=== PATIENT | male | born 1950 | race Caucasian/White ===

== ENCOUNTER 2020-03-30 06:14 | Day surgery (SDC) | payer MEDICARE, SELFPAY ==
[2020-03-30] VITALS (7 sets, daily range): BP systolic 127–142; BP diastolic 75–94; PULSE 57–90; RESP 15–22; TEMP 35.7–36.6; O2SAT 95–98; BMI 31.0
--- NOTE | 2020-03-30 07:53 | MHC.SHP ---
Pre-Procedural Eval Section A The patient is an INPATIENT: No Changes since office visit: Yes Patient answered all questions The History & Physical has been completed within 30 days and I have reviewed it.: Yes Section B Chief Complaint: SEVERE DEPRESSION Allergies: Allergies Allergy/AdvReac Type Severity Reaction Status Date / Time fluvoxamine [From LUVOX] AdvReac Unknown HEPATITIS Unverified 03/03/20 19:49 NSAIDS (Non-Steroidal AdvReac Unknown GI ISSUES Unverified 03/03/20 19:49 Anti-Inflamma [NSAIDS (NON-STEROIDAL ANTI-INFLAMMA] Plan Patient has been examined and remains a candidate for the planned procedure
--- NOTE | 2020-03-30 07:58 | HO.ANESPROP2 ---
[facility] Past Medical History Medical History Anxiety Arthritis Cataract Depression Elevated cholesterol GERD (gastroesophageal reflux disease) HTN (hypertension) Hx of hepatitis Hypothyroid OCD (obsessive compulsive disorder) Surgical History Surgical History Hx of tonsillectomy Social History Social History Are you a primary intensive care medicine specialist to a significant other at home: No Do you presently have visiting nurse or other home services: No Smoking Status: Never smoker Use of substances other than those prescribed or required for medical reasons: No Have you been hit, kicked, punched, or otherwise hurt by someone within the past year? If so, by whom?: No Advance Directives: Yes Advance Directives on File: Yes Advance Directives Date on File: 03/30/20 Recently lost weight without trying: No Meds Allergies Allergy/AdvReac Type Severity Reaction Status Date / Time fluvoxamine [From LUVOX] AdvReac Unknown HEPATITIS Unverified 03/03/20 19:49 NSAIDS (Non-Steroidal AdvReac Unknown GI ISSUES Unverified 03/03/20 19:49 Anti-Inflamma [NSAIDS (NON-STEROIDAL ANTI-INFLAMMA] Home Medications Medication Instructions Recorded Confirmed Type Centrum Silver Men 1 tab PO DAILY 03/29/20 03/29/20 History buspirone 1 tab PO BID 03/29/20 03/29/20 History cholecalciferol (vitamin D3) 1 tab PO DAILY 03/29/20 03/29/20 History cholecalciferol (vitamin D3) 1 tab PO DAILY 03/29/20 03/29/20 History clomipramine 1 cap PO BEDTIME 03/29/20 03/29/20 History docusate sodium 1 cap PO PRN 03/29/20 History ezetimibe 1 tab PO DAILY 03/29/20 03/29/20 History famotidine 1 tab PO BID 03/29/20 03/29/20 History levothyroxine 1 tab PO DAILY 03/29/20 03/29/20 History lorazepam 1.5 tab PO TID 03/29/20 03/30/20 History magnesium oxide 1 tab PO DAILY 03/29/20 03/29/20 History olanzapine 0.5 tab PO BID 03/29/20 03/30/20 History propranolol 1 tab PO TID 03/29/20 03/29/20 History sertraline 1 tab PO QAM 03/29/20 03/29/20 History simvastatin 1 tab PO BEDTIME 03/29/20 03/29/20 History Exam Exam Date and Time: March 30, 2020 0108 Height,Weight and Vital Signs: Height 5 ft 9 in Weight 95.254 kg Last Vital Signs Temp 96.3 F L 03/30/20 06:56 Pulse 71 03/30/20 06:56 Resp 17 03/30/20 06:56 BP 140/94 H 03/30/20 06:56 Pulse Ox 97 03/30/20 06:56 Airway Mallampati Class: II TM Dist: >3cm Neck ROM: Full Assessment and Plan Assessment Anesthesia Assessment: Anesthesia Plan Discussed and Chart Reviewed Final Anesthetic Review NPO: Yes ASA Class: II Final Preanesthetic Review: No Changes in Pt Med Stat, Meds/Allgs Chart Reviewed, Consent Obtained/Reviewed and Anes Risks/Benef Reviewed Patient Risk: Low Procedure Risk: Low Assessment/Block/Sedation in SS: Assess/Block/Sedation-SS Anesthetic Plan Anesthetic Plan: GA Disposition: Standard PACU
--- NOTE | 2020-03-30 08:09 | HO.ECTPROC ---
ECT Procedure Note Diagnosis/Treatment Diagnosis: Major Depressive Disorder Previous ECT Date: 03/02/20 Current Treatment Number: 5 Treatment: Maintenance (10/27) Interval Clinical Notes: STABLE DOING WELL ECT Settings Device: THYMATRON DGx Electrode Placement: Right Unilateral Program/Pulse Width: 0.25 Energy Percent: 100 Seizure Duration By EEG (in seconds): 49 Medications Administration General Anesthetic: Etomidate (12 MG) Muscle Relaxant: Succinylcholine (100 MG) Ancillary Medications Anti-emetics: Zofran - Pre ECT (4 MG) Miscillaneous Medications: Propofol (30 MG) Airway Management Airway Management: Bag Mask Ventilation Treatment Recommendations No Changes Recommended: No change Notes: STABLE DOING WELL WITH MAINT ECT CONTINUE TX Pt Tolerated Procedure w/o Issue: Yes
--- NOTE | 2020-03-30 08:18 | PC.NURSE ---
Pt received 450 ml LR periop.
== END 2020-03-30 09:30 | disposition home or self-care (01) ==
PROVIDERS: PCP Family Medicine; Visit Provider Psychiatry & Neurology Psychiatry
PROC: (CPT 90870; principal; 2020-03-30 07:00)
DX: F33.2 Major depressive disorder, recurrent severe without psychotic features (principal); F42.9 Obsessive-compulsive disorder, unspecified; G47.30 Sleep apnea, unspecified; E78.5 Hyperlipidemia, unspecified; Z79.899 Other long term (current) drug therapy; Z88.8 Allergy status to other drugs, medicaments and biological substances
CPT/HCPCS: 90870

== ENCOUNTER 2020-04-27 06:10 | Day surgery (SDC) | payer MEDICARE, SELFPAY ==
[2020-04-27 06:30] VITALS: BP 142/90; PULSE 81; RESP 16; TEMP 36.5; O2SAT 97; BMI 29.5
--- NOTE | 2020-04-27 07:23 | HO.ANESPROP2 ---
HPI - Anesthesia Eval Consult details Narrative: 69 m here for ect PMFSH Past Medical History Medical History Anxiety Arthritis Cataract Depression Elevated cholesterol GERD (gastroesophageal reflux disease) HTN (hypertension) Hx of hepatitis Hypothyroid OCD (obsessive compulsive disorder) Surgical History Surgical History Hx of tonsillectomy Social History Social History Smoking Status: Never smoker Advance Directives: No Advance Directives Date on File: 03/30/20 Meds Allergies Allergy/AdvReac Type Severity Reaction Status Date / Time fluvoxamine [From LUVOX] AdvReac Unknown HEPATITIS Unverified 04/27/20 06:54 NSAIDS (Non-Steroidal AdvReac Unknown GI ISSUES Unverified 04/27/20 06:54 Anti-Inflamma [NSAIDS (NON-STEROIDAL ANTI-INFLAMMA] Home Medications Medication Instructions Recorded Confirmed Type Centrum Silver Men 1 tab PO DAILY 03/29/20 03/29/20 History buspirone 1 tab PO BID 03/29/20 03/29/20 History cholecalciferol (vitamin D3) 1 tab PO DAILY 03/29/20 03/29/20 History cholecalciferol (vitamin D3) 1 tab PO DAILY 03/29/20 03/29/20 History clomipramine 1 cap PO BEDTIME 03/29/20 03/29/20 History docusate sodium 1 cap PO PRN 03/29/20 History ezetimibe 1 tab PO DAILY 03/29/20 03/29/20 History famotidine 1 tab PO BID 03/29/20 03/29/20 History levothyroxine 1 tab PO DAILY 03/29/20 03/29/20 History lorazepam 1.5 tab PO TID 03/29/20 03/30/20 History magnesium oxide 1 tab PO DAILY 03/29/20 03/29/20 History olanzapine 0.5 tab PO BID 03/29/20 03/30/20 History propranolol 1 tab PO TID 03/29/20 03/29/20 History sertraline 1 tab PO QAM 03/29/20 03/29/20 History simvastatin 1 tab PO BEDTIME 03/29/20 03/29/20 History Exam Exam Date and Time: April 27, 2020 0723 Height,Weight and Vital Signs: Height 5 ft 9 in Weight 90.718 kg Last Vital Signs Temp 97.7 F 04/27/20 06:30 Pulse 81 04/27/20 06:30 Resp 16 04/27/20 06:30 BP 142/90 H 04/27/20 06:30 Pulse Ox 97 04/27/20 06:30 Airway Mallampati Class: II TM Dist: >3cm Neck ROM: Full Adult Head Mouth w/Numbe Teeth: 1. Loose Loose/Missing/Broken Teeth: Yes Assessment and Plan Assessment Anesthesia Assessment: Anesthesia Plan Discussed and Chart Reviewed Final Anesthetic Review NPO: Yes ASA Class: III Final Preanesthetic Review: No Changes in Pt Med Stat, Meds/Allgs Chart Reviewed, Consent Obtained/Reviewed and Anes Risks/Benef Reviewed Patient Risk: Low Procedure Risk: Low Anesthetic Plan Anesthetic Plan: GA Disposition: Standard PACU
--- NOTE | 2020-04-27 07:49 | MHC.SHP ---
Pre-Procedural Eval Section B Chief Complaint: Severe Depression Details of Present Illness: recurrent depression ocd stable with ect Relevant Family History (Specify if Yes): No Relevant Social History: None Present Medications: see Short Stay Collaborative assessment Medical History: No relevant PMH History of Previous Operations: Relevant previous surgery/procedure and date(s) (ect) Allergies: Allergies Allergy/AdvReac Type Severity Reaction Status Date / Time fluvoxamine [From LUVOX] AdvReac Unknown HEPATITIS Unverified 04/27/20 06:54 NSAIDS (Non-Steroidal AdvReac Unknown GI ISSUES Unverified 04/27/20 06:54 Anti-Inflamma [NSAIDS (NON-STEROIDAL ANTI-INFLAMMA] Review of Systems Sugical H&P ROS: Negative: Cardiovascular, Respiratory and Neurological Exam Surgical H&P Exam: Normal: Heart, Normal: Lungs and Normal: Neurological Plan Diagnosis/Plan: Unchanged Patient has been examined and remains a candidate for the planned procedure
[2020-04-27 08:09] VITALS: BP 137/89; PULSE 23; RESP 16; TEMP 36.8; O2SAT 97
[2020-04-27 08:14] VITALS: BP 154/78; PULSE 88; RESP 20; O2SAT 96
[2020-04-27 08:19] VITALS: BP 149/89; PULSE 82; RESP 20; O2SAT 98
[2020-04-27 08:24] VITALS: BP 145/83; PULSE 87; RESP 20; O2SAT 95
--- NOTE | 2020-04-27 08:37 | HO.ECTPROC ---
ECT Procedure Note Diagnosis/Treatment Diagnosis: Major Depressive Disorder Previous ECT Date: 03/02/20 Current Treatment Number: 6 Treatment: Maintenance (10/27) Interval Clinical Notes: STABLE DOING WELL tx11/28 ECT Settings Device: THYMATRON DGx Electrode Placement: Right Unilateral Program/Pulse Width: 0.25 Energy Percent: 100 Seizure Duration By EEG (in seconds): 47 Medications Administration General Anesthetic: Etomidate (12 MG) Muscle Relaxant: Succinylcholine (100 MG) Ancillary Medications Analgesics: Torodol - Pre ECT Anti-emetics: Zofran - Pre ECT (8) Miscillaneous Medications: Propofol (30) Airway Management Airway Management: Bag Mask Ventilation Treatment Recommendations No Changes Recommended: No change Notes: could use lidocaine pretx f/u tx 5 weeks Pt Tolerated Procedure w/o Issue: Yes
[2020-04-27 08:39] VITALS: BP 137/82; PULSE 80; RESP 20; O2SAT 95
--- NOTE | 2020-04-27 09:12 | HO.POSTANES ---
Post Anesthesia Evaluation Post Anesthesia Evaluation Vital Signs: Vital Signs Temp Pulse Resp BP Pulse Ox 04/27/20 08:39 98.3 F 80 20 137/82 95 04/27/20 08:24 87 20 145/83 H 95 04/27/20 08:19 82 20 149/89 H 98 04/27/20 08:14 88 20 154/78 H 96 04/27/20 08:09 98.3 F 23 L 16 137/89 97 04/27/20 06:30 97.7 F 81 16 142/90 H 97 Anesthesia: General (mask) Mental Status: Awake Pain Control: Satisfactory Nausea/Vomiting: None Hydration: Adequate Anesthesia-Related Issues: No Anes. Related Issues
== END 2020-04-27 09:31 | disposition home or self-care (01) ==
PROVIDERS: PCP Family Medicine; Visit Provider Psychiatry & Neurology Psychiatry
PROC: (CPT 90870; principal; 2020-04-27 07:00)
DX: F33.2 Major depressive disorder, recurrent severe without psychotic features (principal); F42.9 Obsessive-compulsive disorder, unspecified; Z88.8 Allergy status to other drugs, medicaments and biological substances; I10 Essential (primary) hypertension; E78.00 Pure hypercholesterolemia, unspecified; Z79.899 Other long term (current) drug therapy
CPT/HCPCS: 90870

== ENCOUNTER 2020-06-01 06:09 | Day surgery (SDC) | payer MEDICARE, SELFPAY ==
[2020-06-01] VITALS (7 sets, daily range): BP systolic 136–149; BP diastolic 77–89; PULSE 71–83; RESP 16–20; TEMP 36.4–36.9; O2SAT 95–98; BMI 31.0
[2020-06-01] MEDS: Lactated Ringers 1,000 ML 100 ML IVCONT (06:35)
--- NOTE | 2020-06-01 07:55 | MHC.SHP ---
Pre-Procedural Eval Section B Chief Complaint: Severe Depression Details of Present Illness: recurrent depression ocd Relevant Family History (Specify if Yes): No Relevant Social History: None Present Medications: see Short Stay Collaborative assessment (anafranil inc 100 mg) Medical History: No relevant PMH History of Previous Operations: No relevant previous surgery (ect) Allergies: Allergies Allergy/AdvReac Type Severity Reaction Status Date / Time fluvoxamine [From LUVOX] AdvReac Unknown HEPATITIS Unverified 04/27/20 06:54 NSAIDS (Non-Steroidal AdvReac Unknown GI ISSUES Unverified 04/27/20 06:54 Anti-Inflamma [NSAIDS (NON-STEROIDAL ANTI-INFLAMMA] Review of Systems Sugical H&P ROS: Negative: Cardiovascular, Respiratory and Neurological and Yes, Specify: Psychiatric (inc ocd sx ) Exam Surgical H&P Exam: Normal: Heart, Normal: Lungs and Normal: Neurological Plan Diagnosis/Plan: Unchanged Patient has been examined and remains a candidate for the planned procedure
--- NOTE | 2020-06-01 07:58 | HO.ANESPROP2 ---
[facility] Past Medical History Medical History Anxiety Arthritis Cataract Depression Elevated cholesterol GERD (gastroesophageal reflux disease) HTN (hypertension) Hx of hepatitis Hypothyroid OCD (obsessive compulsive disorder) Surgical History Surgical History Hx of tonsillectomy Social History Social History Smoking Status: Never smoker Advance Directives: Yes Advance Directives Information Provided: Yes Advance Directives on File: No Advance Directives Date on File: 03/30/20 Meds Allergies Allergy/AdvReac Type Severity Reaction Status Date / Time fluvoxamine [From LUVOX] AdvReac Unknown HEPATITIS Unverified 04/27/20 06:54 NSAIDS (Non-Steroidal AdvReac Unknown GI ISSUES Unverified 04/27/20 06:54 Anti-Inflamma [NSAIDS (NON-STEROIDAL ANTI-INFLAMMA] Home Medications Medication Instructions Recorded Confirmed Type Centrum Silver Men 1 tab PO DAILY 03/29/20 03/29/20 History buspirone 1 tab PO BID 03/29/20 03/29/20 History cholecalciferol (vitamin D3) 1 tab PO DAILY 03/29/20 03/29/20 History cholecalciferol (vitamin D3) 1 tab PO DAILY 03/29/20 03/29/20 History docusate sodium 1 cap PO PRN 03/29/20 History ezetimibe 1 tab PO DAILY 03/29/20 03/29/20 History famotidine 1 tab PO BID 03/29/20 03/29/20 History levothyroxine 1 tab PO DAILY 03/29/20 03/29/20 History lorazepam 1.5 tab PO TID 03/29/20 03/30/20 History magnesium oxide 1 tab PO DAILY 03/29/20 03/29/20 History olanzapine 0.5 tab PO BID 03/29/20 03/30/20 History propranolol 1 tab PO TID 03/29/20 03/29/20 History simvastatin 1 tab PO BEDTIME 03/29/20 03/29/20 History clomipramine 06/01/20 06/01/20 History sertraline 50 mg PO DAILY 06/01/20 06/01/20 History Exam Exam Date and Time: June 01, 2020 0758 Height,Weight and Vital Signs: Height 5 ft 9 in Weight 95.254 kg Last Vital Signs Temp 97.6 F 06/01/20 06:10 Pulse 78 06/01/20 06:10 Resp 16 06/01/20 06:10 BP 149/89 H 06/01/20 06:10 Pulse Ox 97 06/01/20 06:10 Airway Mallampati Class: II TM Dist: >3cm Neck ROM: Full Loose/Missing/Broken Teeth: Yes and Upper
--- NOTE | 2020-06-01 09:40 | HO.POSTANES ---
Post Anesthesia Evaluation Post Anesthesia Evaluation Vital Signs: Vital Signs Temp Pulse Resp BP Pulse Ox 06/01/20 09:06 98.4 F 76 20 136/85 96 06/01/20 08:51 76 20 143/83 H 97 06/01/20 08:36 81 20 144/77 H 97 06/01/20 08:31 83 20 140/79 H 98 06/01/20 08:26 83 18 139/84 97 06/01/20 08:21 98.1 F 71 19 138/77 95 06/01/20 06:10 97.6 F 78 16 149/89 H 97 Anesthesia: General (mask) Mental Status: Awake Pain Control: Satisfactory Nausea/Vomiting: None Hydration: Adequate Anesthesia-Related Issues: No Anes. Related Issues
--- NOTE | 2020-06-01 22:25 | HO.ECTPROC ---
ECT Procedure Note Diagnosis/Treatment Diagnosis: Major Depressive Disorder Current Treatment Number: 7 Treatment: Maintenance Interval Clinical Notes: patient continues to be stable some inc anxiety OCD ECT Settings Device: THYMATRON DGx Electrode Placement: Right Unilateral Program/Pulse Width: 0.25 Energy Percent: 100 Seizure Duration By EEG (in seconds): 55 Medications Administration General Anesthetic: Etomidate (12 MG) Muscle Relaxant: Succinylcholine (100 MG) Ancillary Medications Analgesics: Torodol - Pre ECT Anti-emetics: Zofran - Pre ECT (8) Miscillaneous Medications: Propofol (30) Airway Management Airway Management: Bag Mask Ventilation
== END 2020-06-01 09:55 | disposition home or self-care (01) ==
PROVIDERS: PCP Family Medicine; Visit Provider Psychiatry & Neurology Psychiatry
PROC: (CPT 90870; principal; 2020-06-01 07:00)
DX: F33.2 Major depressive disorder, recurrent severe without psychotic features (principal); F42.9 Obsessive-compulsive disorder, unspecified; F41.8 Other specified anxiety disorders; I10 Essential (primary) hypertension; Z79.899 Other long term (current) drug therapy; Z88.8 Allergy status to other drugs, medicaments and biological substances
CPT/HCPCS: 90870

== ENCOUNTER 2020-07-20 06:11 | Day surgery (SDC) | payer MEDICARE, SELFPAY ==
[2020-07-20] VITALS (7 sets, daily range): BP systolic 126–154; BP diastolic 76–90; PULSE 63–90; RESP 16–19; TEMP 32.2–36.8; O2SAT 92–98; BMI 31.7
--- NOTE | 2020-07-20 07:06 | P.CONAN_ITS ---
COUNT INCLUDES THE [facility] Past Medical History Medical History Anxiety Arthritis Cataract Depression Elevated cholesterol GERD (gastroesophageal reflux disease) HTN (hypertension) Hx of hepatitis Hypothyroid OCD (obsessive compulsive disorder) Surgical History Surgical History Hx of tonsillectomy Social History Social History Smoking Status: Never smoker Use of substances other than those prescribed or required for medical reasons: No Have you been hit, kicked, punched, or otherwise hurt by someone within the past year? If so, by whom?: No Advance Directives: No Advance Directives Information Provided: Yes Advance Directives Date on File: 03/30/20 Recently lost weight without trying: No Meds Allergies Allergy/AdvReac Type Severity Reaction Status Date / Time fluvoxamine [From LUVOX] AdvReac Unknown HEPATITIS Unverified 04/27/20 06:54 NSAIDS (Non-Steroidal AdvReac Unknown GI ISSUES Unverified 04/27/20 06:54 Anti-Inflamma [NSAIDS (NON-STEROIDAL ANTI-INFLAMMA] Home Medications Medication Instructions Recorded Confirmed Type Centrum Silver Men 1 tab PO DAILY 03/29/20 03/29/20 History buspirone 1 tab PO BID 03/29/20 03/29/20 History cholecalciferol (vitamin D3) 1 tab PO DAILY 03/29/20 03/29/20 History cholecalciferol (vitamin D3) 1 tab PO DAILY 03/29/20 03/29/20 History docusate sodium 1 cap PO PRN 03/29/20 History ezetimibe 1 tab PO DAILY 03/29/20 03/29/20 History famotidine 1 tab PO BID 03/29/20 03/29/20 History levothyroxine 1 tab PO DAILY 03/29/20 03/29/20 History lorazepam 1.5 tab PO TID 03/29/20 03/30/20 History magnesium oxide 1 tab PO DAILY 03/29/20 03/29/20 History olanzapine 0.5 tab PO BID 03/29/20 03/30/20 History propranolol 1 tab PO TID 03/29/20 03/29/20 History simvastatin 1 tab PO BEDTIME 03/29/20 03/29/20 History clomipramine 06/01/20 06/01/20 History sertraline 50 mg PO DAILY 06/01/20 06/01/20 History Exam Exam Date and Time: July 20, 2020705 Height,Weight and Vital Signs: Height 5 ft 9 in Weight 97.522 kg Last Vital Signs Temp 98.0 F 07/20/20 06:35 Pulse 88 07/20/20 06:35 Resp 16 07/20/20 06:35 BP 149/89 H 07/20/20 06:35 Pulse Ox 96 07/20/20 06:35 Airway Mallampati Class: II (Loose botton tooth, implant top right lateral) TM Dist: >3cm Neck ROM: Full Heart: RRR Lungs: CTA BL Assessment and Plan Assessment Anesthesia Assessment: Anesthesia Plan Discussed and Chart Reviewed Final Anesthetic Review NPO: Yes (Sip water with med) ASA Class: III Final Preanesthetic Review: Meds/Allgs Chart Reviewed and Consent Obtained/Reviewed Patient Risk: Intermediate Procedure Risk: Intermediate Anesthetic Plan Anesthetic Plan: GA Disposition: Standard PACU
--- NOTE | 2020-07-20 07:34 | MHC.SHP ---
Pre-Procedural Eval Section B Chief Complaint: Severe Depression Details of Present Illness: RECURRENT DEPRESSION OCD DOES WELL WITH MAINTENANCE TX Relevant Social History: None Present Medications: see Short Stay Collaborative assessment (HAS INC ANAFRANIL 150 MG ) Medical History: Significant History (ECT FOR DEPRESSION ) History of Previous Operations: No relevant previous surgery (ECT) Allergies: Allergies Allergy/AdvReac Type Severity Reaction Status Date / Time fluvoxamine [From LUVOX] AdvReac Unknown HEPATITIS Unverified 04/27/20 06:54 NSAIDS (Non-Steroidal AdvReac Unknown GI ISSUES Unverified 04/27/20 06:54 Anti-Inflamma [NSAIDS (NON-STEROIDAL ANTI-INFLAMMA] Review of Systems Sugical H&P ROS: Negative: Cardiovascular, Respiratory and Neurological and Yes, Specify: Psychiatric (OBSESSIONAL THOUGHTS ) Exam Surgical H&P Exam: Normal: HEENT, Normal: Heart (RR NO MURMUR ) and Normal: Lungs (CLEAR) Plan Diagnosis/Plan: Unchanged I have reviewed the history and physical and performed a pertinent physical examination on my patient. No changes have occurred unless specified.
--- NOTE | 2020-07-20 07:50 | HO.ECTPROC ---
ECT Procedure Note Diagnosis/Treatment Diagnosis: Major Depressive Disorder Previous ECT Date: 06/01/20 Current Treatment Number: 8 Treatment: Maintenance Interval Clinical Notes: pt doing well will try and d/c ect ECT Settings Device: THYMATRON DGx Electrode Placement: Right Unilateral Program/Pulse Width: 0.25 Energy Percent: 100 Seizure Duration By EEG (in seconds): 46 Medications Administration General Anesthetic: Etomidate (12 MG) Muscle Relaxant: Succinylcholine (100 MG) Ancillary Medications Anti-emetics: Zofran - Pre ECT (8) Miscillaneous Medications: Propofol (30 mg) and Flumazenil Airway Management Airway Management: Bag Mask Ventilation Treatment Recommendations No Changes Recommended: No change Notes: will end maint for now consider prn Pt Tolerated Procedure w/o Issue: Yes
--- NOTE | 2020-07-20 08:22 | HO.POSTANES ---
Post Anesthesia Evaluation Post Anesthesia Evaluation Vital Signs: Vital Signs Temp Pulse Resp BP Pulse Ox 07/20/20 08:08 90 16 140/82 H 92 07/20/20 08:03 90 19 148/90 H 94 07/20/20 07:58 88 17 138/76 94 07/20/20 07:53 98.3 F 63 16 154/80 H 98 07/20/20 06:35 98.0 F 88 16 149/89 H 96 Anesthesia: General Mental Status: Awake Pain Control: Satisfactory Nausea/Vomiting: None Hydration: Adequate Anesthesia-Related Issues: No Anes. Related Issues
== END 2020-07-20 08:46 | disposition home or self-care (01) ==
PROVIDERS: PCP Family Medicine; Visit Provider Psychiatry & Neurology Psychiatry
PROC: (CPT 90870; principal; 2020-07-20 07:00)
DX: F33.2 Major depressive disorder, recurrent severe without psychotic features (principal); F42.9 Obsessive-compulsive disorder, unspecified
CPT/HCPCS: 90870; J0330; J2405

== ENCOUNTER 2021-07-07 08:30 | Outpatient (RCR) | payer MEDICARE, SELFPAY ==
--- NOTE | 2021-06-22 12:01 | PC.NURSE ---
Staff stated that Blake was having technical issues in the second group thus was not able to attend. I spoke to Blake for 45 minutes trying to help him with video and microphone issues however Blake was continuing to have difficulty with the technology. I asked him how he was able to get into the first group and he stated his had helped him however his is not home at this time to help him. Plan is for patient to call staff when his gets home within the next hour or 2 so she can help him with the technology and start the program tomorrow.
[2021-06-23 11:51] VITALS: BMI 32.5
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
--- NOTE | 2021-06-23 14:25 | PC.ADMIT ---
Patient is a 70 year old male who self referred to the PHP program d/t increased depression with passive SI, no plan or intent, and increased anxiety. He reports crying episodes and expressed feelings of hopelessness and helplessness. Patient reports he has a history of anxiety and depression however it has worsened after he retired from work. Patient also noted another trigger for him was moving from [place] to [place]. Patient has a history of inpatient admissions and a history of attending PHP. Denied history of suicide attempts. Patient is alert and oriented x4. Calm and cooperative. Presents with depressed mood and affect, tearful towards the end of the assessment. Patient reports passive Si having thoughts to kill himself when her has, crying fits . Patient denied plan or intent stating her could never kill himself as he's too afraid. Reconciled patient medications with patient and patient's pharmacy. Patient reports he is taking his medications as prescribed.
--- NOTE | 2021-06-28 12:01 | P.PNPSP_ITS ---
Subjective Subjective Date of Service: 06/28/21 Reason For Visit: Depression, Anxiety Guardianship: No Medical Problems Affecting Mental Status: No Interim History: I'm good, haven't really noticed a change with the gabapentin . Reports good sleep and appetite. Says feels slightly drowsy, not bothersome. No thoughts of self-harm, harm to others. Continues with dysphoric mood. Reports his main concern is my anxiety . Medication Compliance: Yes Side effects from medications: No Attending Groups: Yes Review of Systems Acute medical concerns: No Medical Review of Systems: unchanged Review of Systems Review of Systems Yes all other systems are reviewed and are negative Constitutional: Reports no additional constitutional complaints Mental Status Exam Mental Status Exam Narrative: Well-developed, well-nourished male, in NAD. No involuntary movements noted, no tics or tremors. Overall client appears less anxious, appears more at ease. Patient Appearance: Well Grooomed and Appropriate Patient Orientation: Person, Place, Time and Situation Level of Consciousness: Awake and Alert Patient Behavior: Appropriate, Cooperative and Good Eye Contact Mood Description: Appropriate, Depressed and Anxious Affect Description: Appropriate, Depressed and Anxious (Overall client appears less anxious, appears more at ease.) Patient Cognition Impaired: No Ability to Follow Directions: Excellent Speech Pattern: Appropriate, Spontaneous Speech and Coherent Memory Description: Intact Hallucinations: None Delusions: Not Present Thought Process: Intact, Goal Oriented and Linear Thought Content: positive for Intact and positive for Preoccupation Depressive Symptoms: Increased Anxiety, Diff. Making Decisions, Loss of Int. in Activity, Feelings of Worthlessness, Hopelessness, Feelings of Guilt, Unhappiness and Difficulty Concentrating Judgement: Fair Diagnostics Vital Signs (24Hr): BMI result Body Mass Index 32.5 Assessment & Plan Assessment & Plan (1) OCD (obsessive compulsive disorder): Status: Acute Code(s): F42.9 - Obsessive-compulsive disorder, unspecified (2) MDD (major depressive disorder), recurrent episode, severe: Status: Acute Code(s): F33.2 - Major depressive disorder, recurrent severe without psychotic features (3) BRITTNY (generalized anxiety disorder): Status: Acute Code(s): F41.1 - Generalized anxiety disorder Assessment and Plan: Client reports that he continues feeling ?anxious ?. Reports he does not feel the gabapentin 100 mg t.i.d. has been helpful. Denies any type of side effects from medication. Reports good sleep, good appetite. Denies any thought of self-harm at this time, no safety concern. Reports that he finds groups are somewhat helpful. Overall, client appears more at ease, with less anxiety. No obsessional thoughts noted or reported at this time. Discussed medication increase, client was agreeable. Assessment and Plan: 1. Increase gabapentin to 200mg TID. Script sent to pharmacy. 2. continue with current [facility] plan of care. 3. Follow-up as per protocol. Patient educated on: diagnosis, medication risk/benefits and therapeutic strategies Informed Consent: understands Reason for contiued partial hosp. stay Substantial Risk for: inability to function and med/psych decompensation Certification I certify that partial hospital treatment is medically necessary due to the symptoms and problems resulting from the patient's mental illness and the failure to treat the patient at the partial hospital level of care would likely result in the patient requiring inpatient psychiatric care which could not be prevented at a less intensive level of care. I spent minutes with the patient and/or on the patient floor today, greater than?50% of which was spent counseling/coordinating care. Discharge Plan Discharge Attending provider: Roldan Cárdenas Primary Care Provider: Gerri Johansen Medications: New gabapentin 100 mg capsule 200 mg PO TID 7 Days Qty: 42 RF: 0 No Action olanzapine 10 mg tablet 5 tab PO BEDTIME RF: 0 propranolol 10 mg tablet 1 tab PO TID RF: 0 famotidine 20 mg tablet 1 tab PO BID RF: 0 magnesium oxide 400 mg (241.3 mg magnesium) tablet 1 tab PO DAILY RF: 0 simvastatin 20 mg tablet 1 tab PO BEDTIME RF: 0 levothyroxine 200 mcg tablet 1 tab PO DAILY RF: 0 ezetimibe 10 mg tablet 1 tab PO DAILY RF: 0 Centrum Silver Men tablet 1 tab PO DAILY RF: 0 cholecalciferol (vitamin D3) 2,000 units capsule 1 tab PO DAILY RF: 0 fluoxetine [Prozac] 40 mg Capsule 80 mg PO DAILY RF: 0 clonazepam [Klonopin] 1 mg Tablet 1 mg PO TID RF: 0 tamsulosin 0.4 mg Capsule 0.4 mg PO BEDTIME RF: 0 buspirone 10 mg Tablet 20 mg PO TID RF: 0 docusate sodium [Colace] 100 mg Capsule 100 mg PO BID RF: 0 vitamin B complex [B Complex 100] Tablet 1 tab PO BID RF: 0 senna 8.6 mg Capsule 8.8 - 17.2 mg PO DAILY RF: 0 Referrals: Gerri Johansen MD [Primary Care Provider] - 1 Week Telehealth Telehealth Location of provider rendering services: practice address Location of patient: address on file Patient Identification confirmed using: Name, : Yes Telehealth method: video Patient verbally consented to treatment: Yes Patient verbally consented to billing insurance company: Yes Patient informed of any privacy concerns related to visit: Yes Time spent with patient (mins): 20
--- NOTE | 2021-07-03 09:23 | PM.EVENT ---
Event Note Date of Service: 07/03/21 Event Note: Gabapentin 200 mg t.i.d., 14 day supply sent to pharmacy.
--- NOTE | 2021-07-03 13:28 | PC.NURSE ---
After speaking with pt, I sent him an email with information about [employer] for help accessing potential volunteer opportunities.
--- NOTE | 2021-07-06 16:29 | HO.PHPPROGNO ---
Subjective Subjective Date of Service: 07/06/21 Reason For Visit: Depression, Anxiety Guardianship: No Medical Problems Affecting Mental Status: No Interim History: Reports ?I am okay ?. States gabapentin does not adequate to help manage anxiety, requesting increase. Denies any thought of harm to self or others, no safety concern at this time. Medication Compliance: Yes Side effects from medications: No Attending Groups: Yes Review of Systems Acute medical concerns: No Medical Review of Systems: unchanged Review of Systems Review of Systems Yes all other systems are reviewed and are negative Constitutional: Reports no additional constitutional complaints Mental Status Exam Mental Status Exam Narrative: Well-developed, well-nourished male, in NAD. No involuntary movements noted, no tics or tremors. Patient Appearance: Well Grooomed and Appropriate Patient Orientation: Person, Place, Time and Situation Level of Consciousness: Awake and Alert Patient Behavior: Appropriate, Cooperative and Good Eye Contact Mood Description: Appropriate, Depressed and Anxious Affect Description: Appropriate, Depressed (overall less depressed) and Anxious (overall less anxious. ) Patient Cognition Impaired: No Ability to Follow Directions: Excellent Speech Pattern: Appropriate, Spontaneous Speech and Coherent Memory Description: Intact Hallucinations: None Delusions: Not Present Thought Process: Intact, Goal Oriented and Linear Thought Content: positive for Intact and positive for Preoccupation Depressive Symptoms: Diff. Making Decisions, Hopelessness and Feelings of Guilt Judgement: Good Diagnostics Vital Signs (24Hr): BMI result Body Mass Index 32.5 Assessment & Plan Assessment & Plan (1) MDD (major depressive disorder), recurrent episode, severe: Status: Acute Code(s): F33.2 - Major depressive disorder, recurrent severe without psychotic features Assessment and Plan: Blake reports overall feeling improved, although believes gabapentin dose should be higher as he continues with some anxiety symptoms. He reports he is tolerating the medication well, and although he does feel a little tired in the morning, overall he feels he is not really experiencing side effects from it. No thoughts of self-harm or harm to others in any way, no safety concern. He appears stable for discharge for tomorrow. We discussed plans for future once the structure of this program is gone. He is in process of considering volunteering at a [employer] kitchen, he is also planning to volunteer counseling potential owners for dog adoptions. He reports that he is shy person, and that although he did not vocally participate during groups as much as other members, he feels he did gain skills by participating. He states that it was comforting to know that there are other people that also suffer from depression and anxiety symptoms. (2) OCD (obsessive compulsive disorder): Status: Acute Code(s): F42.9 - Obsessive-compulsive disorder, unspecified (3) BRITTNY (generalized anxiety disorder): Status: Acute Code(s): F41.1 - Generalized anxiety disorder Assessment and Plan: 1. Increase gabapentin to 300 mg 3 times daily. A 30 day script sent to pharmacy. 2. Client appears stable for discharge from [facility] tomorrow. 3. Client will follow up with outpatient providers going forward. Patient educated on: diagnosis, medication risk/benefits and therapeutic strategies Informed Consent: understands Reason for contiued partial hosp. stay Substantial Risk for: stable for discharge Certification I certify that partial hospital treatment is medically necessary due to the symptoms and problems resulting from the patient's mental illness and the failure to treat the patient at the partial hospital level of care would likely result in the patient requiring inpatient psychiatric care which could not be prevented at a less intensive level of care. I spent minutes with the patient and/or on the patient floor today, greater than?50% of which was spent counseling/coordinating care. Discharge Plan Discharge Attending provider: Roldan Cárdenas Primary Care Provider: Gerri Johansen Medications: New gabapentin 300 mg capsule 300 mg PO TID 30 Days Qty: 90 RF: 0 No Action olanzapine 10 mg tablet 5 tab PO BEDTIME RF: 0 propranolol 10 mg tablet 1 tab PO TID RF: 0 famotidine 20 mg tablet 1 tab PO BID RF: 0 magnesium oxide 400 mg (241.3 mg magnesium) tablet 1 tab PO DAILY RF: 0 simvastatin 20 mg tablet 1 tab PO BEDTIME RF: 0 levothyroxine 200 mcg tablet 1 tab PO DAILY RF: 0 ezetimibe 10 mg tablet 1 tab PO DAILY RF: 0 Centrum Silver Men tablet 1 tab PO DAILY RF: 0 cholecalciferol (vitamin D3) 2,000 units capsule 1 tab PO DAILY RF: 0 fluoxetine [Prozac] 40 mg Capsule 80 mg PO DAILY RF: 0 clonazepam [Klonopin] 1 mg Tablet 1 mg PO TID RF: 0 tamsulosin 0.4 mg Capsule 0.4 mg PO BEDTIME RF: 0 buspirone 10 mg Tablet 20 mg PO TID RF: 0 docusate sodium [Colace] 100 mg Capsule 100 mg PO BID RF: 0 vitamin B complex [B Complex 100] Tablet 1 tab PO BID RF: 0 senna 8.6 mg Capsule 8.8 - 17.2 mg PO DAILY RF: 0 Referrals: Gerri Johansen MD [Primary Care Provider] - 1 Week Telehealth Telehealth Location of provider rendering services: practice address Location of patient: address on file Patient Identification confirmed using: Name, : Yes Telehealth method: video Patient verbally consented to treatment: Yes Patient verbally consented to billing insurance company: Yes Patient informed of any privacy concerns related to visit: Yes Time spent with patient (mins): 20
--- NOTE | 2021-07-07 17:05 | PC.NURSE ---
I called and left a message for Glenis Rios [employer], pt's therapist. I let her know about pt's discharge today and his clinical presentation. I informed her that pt was offered more time in PHP, but declined. I let her know that he can return to PHP if needed.
--- NOTE | 2021-07-07 17:07 | PC.NURSE ---
At pt's request, I emailed him with 2 links for guided acceptance/mindfulness meditations that were used in group.
--- NOTE | 2021-07-10 10:19 | PC.NURSE ---
Patient discharged from the program on 07/07/21. Patient reports feeling ready for discharge. No SI or thoughts to harm himself. Reviewed patient medications with patient. Patient reports taking medications as prescribed.
--- NOTE | 2021-07-10 10:47 | P.EN_ITS ---
Event Note Date of Service: 07/10/21 Event Note: This database report writer received a phone call this morning from client and his , to report that client was suicidal, having a panic attack, and that they believe it is due to the gabapentin. Recommended that they call [facility] now for an evaluation, due to suicidal ideation. Discussed medication, this database report writer recommended they either return to lower dose of 200mg tid rather than 300mg tid, as he was doing well with the lower dose. Also recommended that instead, they could choose to stop the gabapentin altogether, and follow-up with outpatient provider regarding further medications.
== END 2021-07-10 07:32 | disposition home or self-care (01) ==
LOC: HO.PHPA 08:30
PROVIDERS: PCP Family Medicine; Visit Provider Psychiatry & Neurology Psychiatry
DX: F33.2 Major depressive disorder, recurrent severe without psychotic features (principal); F42.9 Obsessive-compulsive disorder, unspecified; F41.1 Generalized anxiety disorder; Z79.899 Other long term (current) drug therapy
CPT/HCPCS: 90791; 90853

== ENCOUNTER 2024-03-24 12:30 | Emergency (ER) | payer MEDICARE, SELFPAY ==
[2024-03-24 12:37] VITALS: BP 141/105; PULSE 65; RESP 26; TEMP 36.4; O2SAT 100; BMI 25.8
--- NOTE | 2024-03-24 12:46 | ECG_ITS ---
Test Reason : ANXIETY Blood Pressure : / mmHG Vent. Rate : 053 BPM Atrial Rate : 053 BPM P-R Int : 190 ms QRS Dur : 106 ms QT Int : 442 ms P-R-T Axes : 054 069 053 degrees QTc Int : 414 ms Sinus bradycardia Otherwise normal ECG When compared with ECG of 21-OCT-2019 17:47, Vent. rate has decreased BY 32 BPM Referred By: Trevor Werner Electronically Signed By:ORALIA BLAKE MD
--- NOTE | 2024-03-24 12:47 | ED_ITS ---
HPI - General Adult General Chief complaint: Anxiety Stated complaint: Psych eval Time Seen by Provider: 03/24/24 12:55 Source: patient and old records reviewed Mode of arrival: ambulatory Limitations: no limitations History of Present Illness ED Provider: AARON KYLE narrative: 73 yo male with PMH of anxiety, OCD, depression, hypothyroidism, here with c/o just getting out of [facility] 1 week ago then going into partial program here for the last 4 days. He was initially referred from DOCUMENT REVIEW ATTORNEY at [facility] to [place]. He notes he has had severe nausea and increased saliva for 9+ months and he cannot deal with it. He had significant work ups including MBS and imaging that were negative. He notes he did great with compazine in past but given age and his other medications his psychiatrist tapered him off and he has done poorly ever since. Today he woke up with severe anxiety and hyperventilating and the day program referred him. MD complaint: severe anxiety Onset (ago): month(s) (9+) Radiation: non-radiation Severity: severe Relieving factors: none Exacerbating factors: other Associated symptoms: other (nausea) Treatments prior to arrival: other Related Data Home Medications ?Medication ?Instructions ?Recorded ?Confirmed Centrum Silver Men 1 tab PO DAILY 03/29/20 03/19/24 cholecalciferol (vitamin D3) 1 tab PO DAILY 03/29/20 03/19/24 ezetimibe 10 mg tablet 1 tab PO DAILY 03/29/20 03/19/24 magnesium oxide 400 mg (241.3 mg 1 tab PO DAILY 03/29/20 03/19/24 magnesium) tablet propranolol 10 mg tablet 1 tab PO BID 03/29/20 03/19/24 simvastatin 20 mg tablet 1 tab PO BEDTIME 03/29/20 03/19/24 clonazepam 1 mg tablet (Klonopin) 1 mg PO TID 06/23/21 03/19/24 tamsulosin 0.4 mg capsule 0.4 mg PO DAILY 06/23/21 03/19/24 vitamin B complex 1 tab PO DAILY 06/23/21 03/19/24 aluminum-mag hydroxide-simethicone 30 ml PO Q6H PRN Nausea 03/19/24 03/19/24 200 mg-200 mg-20 mg/5 mL oral susp buspirone 15 mg tablet 15 mg PO TID 03/19/24 03/19/24 escitalopram oxalate 20 mg tablet 20 mg PO DAILY 03/19/24 03/19/24 famotidine 40 mg tablet 40 mg PO BEDTIME 03/19/24 03/19/24 levothyroxine 175 mcg tablet 175 mcg PO DAILY 03/19/24 03/19/24 polyethylene glycol 3350 17 gram 17 g PO DAILY PRN Severe 03/19/24 03/19/24 oral powder packet (Miralax) Constipation quetiapine 25 mg tablet 25 mg PO BID PRN Severe Anxiety 03/19/24 03/19/24 sennosides 8.6 mg tablet (senna) 34.4 mg PO BEDTIME 03/19/24 03/19/24 sucralfate 1 gram tablet 1 g PO BID 03/19/24 03/19/24 Previous Rx's ?Medication ?Instructions ?Recorded ondansetron HCl 4 mg tablet 4 mg PO Q8H PRN nausea #10 tabs 03/20/24 Allergies Allergy/AdvReac Type Severity Reaction Status Date / Time fluvoxamine [From LUVOX] AdvReac Unknown HEPATITIS Verified 03/24/24 12:47 NSAIDS (Non-Steroidal AdvReac Unknown GI ISSUES Verified 03/24/24 12:47 Anti-Inflamma [NSAIDS (NON-STEROIDAL ANTI-INFLAMMA] Review of Systems 2 Review of Systems: Constitutional : No Fever, No Chills ENT/Mouth : No Ear Pain, No Nasal Congestion, No sore throat Eyes: No Eye Pain, No Swelling, No Redness Cardiovascular : No Chest Pain, No SOB Respiratory : No Cough, No Sputum, No Dyspnea Gastrointestinal : pos Nausea, No Vomiting, No Diarrhea, No Hematochezia, No Melena Genitourinary : No Dysuria, No Urinary Frequency, No Hematuria Musculoskeletal : No Myalgias Skin : No Skin Lesions, No rash Neuro : No Weakness, No Numbness, No Paresthesias, No Dizziness, No Headache Psych : positive Anxiety, positive Depression, no SI/HI Heme/Lymph: No Lymphadenopathy Endocrine : No Polyuria, No Polydipsia All other systems reviewed and are negative [facility] Past Medical History Attestation statement: The following information was validated with the patient. Source: old records reviewed Medical History Gall stones Kidney stone Renal cyst History of headache Sleep apnea Cataract Arthritis Hypothyroid GERD (gastroesophageal reflux disease) Hx of hepatitis OCD (obsessive compulsive disorder) Anxiety Depression Elevated cholesterol HTN (hypertension) Surgical History Hx of tonsillectomy Social History Social History Household Members: Spouse Household Members Other:: N/A Are you a primary rn patient care to a significant other at home: No Do you presently have visiting nurse or other home services: No Patient Tobacco Use Status: Never used Tobacco Advance Directives: Yes Advance Directives Information Provided: Yes Advance Directives on File: No Advance Directives Date on File: 03/30/20 Do you have a plan to hurt others: No Plan Physical Exam ED Vital Signs: Vital Signs - 24 hr 03/24/24 12:37 03/24/24 13:14 03/24/24 18:54 Temperature 97.5 F 98.3 F 98.3 F Pulse Rate 65 61 61 Respiratory Rate 26 H 17 17 Blood Pressure 141/105 H 128/74 128/74 Pulse Oximetry 100 98 98 Oxygen Delivery Method Room Air Room Air Room Air BMI result Body Mass Index 25.8 Appearance: Alert. Oriented X3. continually swallows, talking very fast and then takes very long deep breaths and seems to panic, mild acute distress. Eyes: Pupils equal, round and reactive to light. ENT: Pharynx normal. Neck: Normal inspection. Neck supple. CVS: Normal heart rate and rhythm. Pulses normal. Respiratory: No respiratory distress. Breath sounds normal. Abdomen: Soft and nontender. Skin: Skin warm and dry. Normal skin color. Normal skin turgor. Extremities: No lower extremity edema. Neuro: Oriented X 3. No motor deficit. No sensory deficit. CN2-12 intact Course Course Course Narrative: RME: Done by DAVIN Peñaloza. 73-year-old male with severe anxiety major depressive disorder presents to the ED for anxiety, crying, being tearful and depressed. Patient denies any suicidal or homicidal thoughts. Patient states anxiety is not controlled in his tearful and crying. Labs EKG ordered. Patient was going to the palm. Reevaluation(s) Reevaluation #1: Patient is seen by care team plan to patient's discharge patient home tonight and start PHP program in a.m. Time: 18:08 Medications Administered Discontinued Medications Generic Name Dose Route Start Last Admin Trade Name Vasu PRN Reason Stop Dose Admin Ondansetron HCl 4 mg 03/24/24 13:24 03/24/24 13:39 Ondansetron Odt 4 Mg Tab.Ines VILLARREAL 03/24/24 13:25 4 mg ONCE ONE Administration Medical Decision Making Medical Decision Making MDM Narrative: 73 yo male with PMH of anxiety, OCD, depression, hypothyroidism, here with c/o severe anxiety and chronic nausea - just had inpatient stay he is very anxious and perseverating on the saliva in his mouth. At this time will obtain labs, EKG for qtc and offer ODT zofran. Differential Diagnosis Differential Diagnoses: The differential diagnosis associated with the presentation includes severe anxiety, OCD Admission/Observation Consideration of admission/observation: Escalation of care including admission/observation considered physician observation started at 132pm pending CARE team Consult Healthcare Provider Management of the patient was discussed with: Behavioral Health Provider Lab Data [facility] Lab Attestation statement: I reviewed the patient's lab results. 03/24/24 13:33 03/24/24 13:34 Labs: Lab Results 03/24/24 03/24/24 Range/Units 13:33 13:34 WBC 6.3 (4.8-10.8) X10*3/uL RBC 4.85 (4.60-5.80) X10*6/uL Hgb 15.0 (14.0-18.0) g/dl Hct 43.9 (42.0-52.0) % MCV 90.5 (80.0-98.0) fL MCH 30.9 (27.0-33.0) pg MCHC 34.2 (31.0-36.0) g/dl RDW 12.2 (11.0-16.0) % Plt Count 195 (160-400) X10*3/uL MPV 10.2 (9.4-12.4) fL Immature Gran % (Auto) 0.3 (0.0-0.4) % Neut % (Auto) 49.3 (45-73) % Lymph % (Auto) 37.5 (20-40) % [place] % (Auto) 10.2 (2-11) % Eos % (Auto) 2.4 (0-4) % Baso % (Auto) 0.3 (0-2) % Lymph # (Auto) 2.4 (1.2-4.9) X10*3/uL [place] # (Auto) 0.6 (0.1-1.2) X10*3/uL Eos # (Auto) 0.2 (0.0-0.4) X10*3/uL Baso # (Auto) 0.0 (0.0-0.2) X10*3/uL Abs Immat Gran (auto) 0.02 (0.00-0.03) X10*3/uL Absolute Neuts (auto) 3.1 (2.0-8.3) x10*3/uL Absolute Nucleated RBC 0.000 (0.0-0.012) X10*3/uL Nucleated RBC % (auto) 0.0 (0.0-0.2) /100WBC Sodium 144 (135-145) mmol/L Potassium 4.1 (3.3-5.1) mmol/L Chloride 110 H (96-108) mmol/L Carbon Dioxide 27 (22-29) mmol/L Anion Gap 11 L (12-20) BUN 16 (9-16) mg/dL Creatinine 1.06 (0.5-1.4) mg/dL Estim Creat Clear Calc 63.9 Estimated GFR > 60 Random Glucose 84 (60-115) mg/dL Calcium 9.5 (8.4-10.2) mg/dL Total Bilirubin 1.0 (0.0-1.0) mg/dL AST 26 (5-37) U/L ALT 29 (0-40) U/L Alkaline Phosphatase 77 (39-117) U/L Total Protein 7.7 (6.5-8.0) g/dL Albumin 4.3 (3.5-5.0) g/dL TSH 0.44 (0.32-4.0) uIU/mL Urine Color Yellow Urine Appearance Clear Urine pH >= 9.0 (5.0-9.0) Ur Specific [place] 1.015 (1.005-1.025) Urine Protein Negative (Neg-Trace) mg/dL Urine Glucose (UA) Negative (Negative) mg/dL Urine Ketones Negative (Negative) mg/dL Urine Blood Negative (Negative) Urine Nitrite Negative (Negative) Ur Leukocyte Esterase Negative (Negative) Urine Opiates Screen Not Detected (Not Detect) Ur Buprenorphine Scrn Not Detected (Not Detect) ng/mL Ur Oxycodone Screen Not Detected (Not Detect) ng/mL Urine Methadone Screen Not Detected (Not Detect) ng/mL Urine Fentanyl Screen Not Detected (Not Detect) Ur Barbiturates Screen Not Detected (Not Detect) Ur Phencyclidine Scrn Not Detected (Not Detect) Ur Amphetamines Screen Not Detected (Not Detect) U Benzodiazepines Scrn Not Detected (Not Detect) Urine Cocaine Screen Not Detected (Not Detect) U Marijuana (THC) Screen Not Detected (Not Detect) Ethyl Alcohol < 10 mg/dL Influenza Type A (PCR) NEGATIVE (Negative) Influenza Type B (PCR) NEGATIVE (Negative) RSV RNA Qual (PCR) NEGATIVE (Negative) SARS-CoV-2 RNA (RT-PCR) NEGATIVE (Negative) Independent Interpretation I performed an independent interpretation of an: EKG Interpretation: Rate: 53 Rhythm: sinus bradycardia [place]: normal Normal P waves. Normal SHAR. Normal QRS complex. ST T wave : normal no SERGIO qTC: 414 prior studies: no acute ischemia The study has been interpreted contemporaneously by me. . External Record Review External record reviewed: Inpatient record Discharge Plan Discharge Clinical Impression: BRITTNY (generalized anxiety disorder) Patient Disposition: Home, Self-Care Instructions: Generalized Anxiety Disorder (ED) Additional Instructions: Continue to take your medications and follow up with therapist as planned for partial hospitalization tomorrow Prescriptions: No Action propranolol 10 mg tablet 1 tab PO BID magnesium oxide 400 mg (241.3 mg magnesium) tablet 1 tab PO DAILY simvastatin 20 mg tablet 1 tab PO BEDTIME ezetimibe 10 mg tablet 1 tab PO DAILY Centrum Silver Men tablet 1 tab PO DAILY cholecalciferol (vitamin D3) 2,000 units capsule 1 tab PO DAILY Rx Instructions: 1 tab PO DAILY clonazepam [Klonopin] 1 mg Tablet 1 mg PO TID tamsulosin 0.4 mg Capsule 0.4 mg PO DAILY vitamin B complex [B Complex 100] Tablet 1 tab PO DAILY Rx Instructions: Patient stated he takes twice a day famotidine 40 mg Tablet 40 mg PO BEDTIME buspirone [BuSpar] 15 mg Tablet 15 mg PO TID escitalopram oxalate 20 mg Tablet 20 mg PO DAILY levothyroxine 175 mcg Tablet 175 mcg PO DAILY Rx Instructions: Take at 0600 am. sennosides [senna] 8.6 mg Tablet 34.4 mg PO BEDTIME Rx Instructions: Take 4 tabs at bedtime. sucralfate 1 gram Tablet 1 g PO BID Rx Instructions: Take at 11:00 pm at bedtime. alum-mag hydroxide-simeth [Maalox] 200-200-20 mg/5 mL Suspension 30 ml PO Q6H PRN (Reason: Nausea) Rx Instructions: 1 and 3 hours after meals and at bedtime quetiapine 25 mg Tablet 25 mg PO BID PRN (Reason: Severe Anxiety) polyethylene glycol 3350 [Miralax] 17 gram Powder In Packet 17 g PO DAILY PRN (Reason: Severe Constipation) ondansetron HCl 4 mg tablet 4 mg PO Q8H PRN (Reason: nausea) Qty: 10 0RF Interventions: ED Discharge Assessment Last Done: 03/24/24 18:54 Discharge Date/Time: 03/24/24 18:56 Print Language: Kiswahili
--- NOTE | 2024-03-24 12:52 | MHC.CARE ---
Call from [facility] staff, walking patient over to ED for evaluation. Reported that he started program last week, has attended two days with high anxiety. Today, pressured speech, panic attacks, shaking, worried, repetitive, unable to comprehend and follow the assignments.
[2024-03-24 13:14] VITALS: BP 128/74; PULSE 61; RESP 17; TEMP 36.8; O2SAT 98
[2024-03-24] MEDS: Ondansetron ODT 4 MG TAB.RAPDIS TRANSLINGU (13:39)
[2024-03-24 13:40] LABS: MANUAL DIFF FLAG NO
[2024-03-24 13:42] LABS: Basophils Percent Auto 0.3 % (0-2); Eosinophils Absolute Auto 0.2 X10*3/uL (0.0-0.4); Eosinophils Percent Auto 2.4 % (0-4); Hematocrit 43.9 % (42.0-52.0); Imm Gran Abs Auto 0.02 X10*3/uL (0.00-0.03); Imm Gran Pct Auto 0.3 % (0.0-0.4); Lymphocytes Absolute Auto 2.4 X10*3/uL (1.2-4.9); Lymphocytes Percent Auto 37.5 % (20-40); Mean Corpuscular HGB Conc 34.2 g/dl (31.0-36.0); Mean Corpuscular Hemoglobin 30.9 pg (27.0-33.0); Mean Corpuscular Volume 90.5 fL (80.0-98.0); Mean Platelet Volume 10.2 fL (9.4-12.4); Monocytes Absolute Auto 0.6 X10*3/uL (0.1-1.2); Monocytes Percent Auto 10.2 % (2-11); Neutrophils Absolute Auto 3.1 x10*3/uL (2.0-8.3); Neutrophils Percent Auto 49.3 % (45-73); Platelet Count 195 X10*3/uL (160-400); Red Blood Count 4.85 X10*6/uL (4.60-5.80); Red Cell Distribution Width 12.2 % (11.0-16.0); White Blood Count 6.3 X10*3/uL (4.8-10.8)
[2024-03-24 13:43] LABS: Appearance Urine Clear; Color Urine Yellow; Glucose Urine UA Negative (Negative); Leukocyte Esterase Urine Negative (Negative); Nitrite Urine Negative (Negative); PH >= 9.0 (5.0-9.0); Specific Gravity - Urine 1.015 (1.005-1.025); Urine Blood Negative (Negative); Urine Ketones Negative (Negative); Urine Protein Negative (Neg-Trace)
--- NOTE | 2024-03-24 13:49 | MHC.EDTECH ---
Patient is changed over into pod attire Belongings are lock in ED pod locker 4 MICKIE Mendoza is aware of patient meds in Patient Lunch box Plan of care ongoing
[2024-03-24 13:56] LABS: Amphetamine Screen Urine Not Detected (Not Detect); Barbiturates, Urine Not Detected (Not Detect); Benzodiazepines Screen Urine Not Detected (Not Detect); Buprenorphine Scr Not Detected (Not Detect); Cannabinoid Screen Urine Not Detected (Not Detect); Cocaine Screen Urine Not Detected (Not Detect); Fentanyl, urine Not Detected (Not Detect); Methadone Screen, Urine Not Detected (Not Detect); Opiate Screen Urine Not Detected (Not Detect); Oxycodone Screen Urine Not Detected (Not Detect); Phencyclidine Screen Urine Not Detected (Not Detect)
[2024-03-24 13:59] LABS: Alanine Aminotransferase 29 U/L (0-40); Albumin Level 4.3 g/dL (3.5-5.0); Alkaline Phosphatase 77 U/L (39-117); Anion Gap 11 (12-20); Aspartate Amino Transferase 26 U/L (5-37); Blood Urea Nitrogen 16 mg/dL (9-16); Calcium 9.5 mg/dL (8.4-10.2); Carbon Dioxide 27 mmol/L (22-29); Chloride 110 mmol/L (96-108); Creatinine Clr Calc Pharmacy 63.9; Estimated Glomerular Filt Rate > 60; Ethanol < 10 mg/dL; Glucose Random 84 mg/dL (60-115); Potassium 4.1 mmol/L (3.3-5.1); Sodium 144 mmol/L (135-145); Total Protein 7.7 g/dL (6.5-8.0)
[2024-03-24 14:16] LABS: TSH reflex Free T4 0.44 uIU/mL (0.32-4.0)
[2024-03-24 14:20] LABS: Influenza A PCR NEGATIVE (Negative); Influenza B PCR NEGATIVE (Negative); Resp Syncy Virus RNA Qual PCR NEGATIVE (Negative); SARS COV2 PCR INHOUSE NEGATIVE (Negative)
[2024-03-24 18:54] VITALS: BP 128/74; PULSE 61; RESP 17; TEMP 36.8; O2SAT 98
== END 2024-03-24 18:56 | disposition home or self-care (01) ==
PROVIDERS: Physician Assistant; Emergency Provider Emergency Medicine; PCP Nurse Practitioner Primary Care
DX: F41.1 Generalized anxiety disorder (principal); R00.1 Bradycardia, unspecified; R94.31 Abnormal electrocardiogram [ECG] [EKG]; Z03.818 Encounter for observation for suspected exposure to other biological agents ruled out; Z79.899 Other long term (current) drug therapy; Z51.81 Encounter for therapeutic drug level monitoring
CPT/HCPCS: 0241U; 36415; 80053; 80307; 81003; 84443; 85025; 93005; 99284; S9485

== ENCOUNTER → 2024-03-24 12:46 | Outpatient (BNV) | payer MEDICARE, SELFPAY | PROVIDERS: Emergency Provider Emergency Medicine; PCP Nurse Practitioner Primary Care; Visit Provider Internal Medicine Cardiovascular Disease | DX: R00.1 Bradycardia, unspecified (principal) | CPT/HCPCS: 93010 ==

== ENCOUNTER 2024-03-27 08:02 | Outpatient (REF) | payer MEDICARE, SELFPAY ==
[2024-03-27 09:24] LABS: Appearance Urine Clear; Color Urine Dark Yellow; Glucose Urine UA Negative (Negative); Leukocyte Esterase Urine Negative (Negative); Nitrite Urine Negative (Negative); PH 6.5 (5.0-9.0); Specific Gravity - Urine 1.015 (1.005-1.025); Urine Blood Negative (Negative); Urine Ketones Negative (Negative); Urine Protein Negative (Neg-Trace)
[2024-03-27 09:25] LABS: Estimated Average Glucose 103 mg/dL; Hemoglobin A1C 109.6057 umol/L; Hemoglobin A1c % 5.2 % (<6.0); Total Hemoglobin (HGBA1C) 3337.3951 umol/L
[2024-03-27 09:39] LABS: Anion Gap 10 (12-20); Blood Urea Nitrogen 14 mg/dL (9-16); Calcium 8.9 mg/dL (8.4-10.2); Carbon Dioxide 28 mmol/L (22-29); Chloride 107 mmol/L (96-108); Estimated Glomerular Filt Rate > 60; Glucose Fasting 99 mg/dL (60-99); Iron 73 mcg/dL (45-160); Magnesium 2.2 mg/dL (1.6-2.6); Percent Iron Saturation 23 % (15-50); Phosphorus 2.9 mg/dL (2.7-4.5); Potassium 3.6 mmol/L (3.3-5.1); Sodium 141 mmol/L (135-145); Total Iron Binding Capacity 312 mcg/dL (228-428); Unsaturated Iron Binding 239 ug/dL
[2024-03-27 09:44] LABS: Parathyroid Hormone Intact 37.9 pg/mL (8.7-77.1)
[2024-03-27 09:45] LABS: Erythrocyte Sedimentation Rate 4 MM/HR (0-15)
[2024-03-27 09:59] LABS: Ferritin 103 ng/mL (20-250); Free T4 (Free Thyroxine) 1.45 ng/dL (0.71-1.85); Thyroid Stimulating Hormone 0.54 uIU/mL (0.32-4.0); Vitamin D 25-OH Total 48.1 ng/mL (>30)
[2024-03-27 10:04] LABS: Folate 14.6 ng/mL (> or = 4.0); Vitamin B12 758 pg/mL (200-900)
[2024-03-27 10:20] LABS: Creatinine Urine 104.88 mg/dL; Microalbum/Creatinine Ratio Ur 4.7 ug/mg cr (<30)
[2024-03-30 18:48] LABS: Homocysteine 8.4 umol/L (<11.4)
[2024-03-31 15:23] LABS: Zinc 68 mcg/dL (60-130)
[2024-04-02 15:24] LABS: Vitamin B1 34 nmol/L (8-30); Vitamin B6 91.9 ng/mL (2.1-21.7)
== END 2024-03-27 08:03 | disposition home or self-care (01) ==
LOC: HO.LAB 08:02
PROVIDERS: PCP Nurse Practitioner Primary Care; Visit Provider Psychiatry & Neurology Psychiatry
DX: F41.8 Other specified anxiety disorders (principal); R19.7 Diarrhea, unspecified; Z13.1 Encounter for screening for diabetes mellitus
CPT/HCPCS: 36415; 80048; 81003; 82043; 82306; 82330; 82570; 82607; 82728; 82746; 83036; 83090; 83540; 83735; 83970; 84100; 84134; 84207; 84425; 84439; 84443; 84630; 85652

== ENCOUNTER 2024-04-02 10:15 | Outpatient (RCR) | payer MEDICARE, SELFPAY ==
[2024-03-19 13:20] VITALS: BMI 25.9
--- NOTE | 2024-03-19 16:01 | PC.ADMIT ---
Patient is a 73 year old male who was referred to [facility] by [facility] behavioral health unit where he hospitalized from 02/26-03/17/24 after self presenting to the ER secondary to c/o severe anxiety and depression. According to records from [place] patient has a significant history of cognitive impairment (neuro testing done in 2021), OCD, MDD, and BRITTNY and medical history for possible parkinsons. BPH, GERD, Hypothyroidism, hyperlipidemia, and sleep apnea. Per records from [place] patient has a history of neurological work up to r/o neurological disease however there was no evidence of neuro-degenerative condition at that time in 2018 and 2019. Patient reportedly waking up daily with SI (no plan or intent) and banding his head. He was described as rocking back and fourth, crying, pulling his hair and scratching his scalp. Notable for many physical complaints including persistent nausea and increased saliva. See records for more information. Patient reports to this fha underwriter Patient reports currently he is here for extreme anxiety and depression and nausea. 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 Reports he moved 4-5 years ago and the last year has been the worst regarding depression and anxiety. Patient reports he has no friends however is involved with many activities that include going to the gym swimming, use hot tub, and exercise machines, walk dog for a walk 3-4 times a day, ping pong, yoga twice a week. He stated the activities only last for an hour and needs something more. Feels his marriage is going down hill stating, Thinking about going to marriage counseling after this . I'm anxious and overly dependent on her we argue a lot she cries a lot. I told her I would not raise my voice at her . Patient is alert and oriented x4. Calm and cooperative. He presented with anxious mood and affect. At times he was seen with increased breathing d/t anxiety and we practiced deep breathing exercises which seemed to help. Denied any current SI. Patient stated, I have had thoughts I have never tried anything and I'm afraid of . I have panic attacks where I pulled my head or hit my head. Medications reconciled with paperwork from [facility] and per medication list his provided. He reports taking medications as prescribed.
--- NOTE | 2024-03-19 17:23 | HO.PHP ---
Client's case has been opened and reviewed in team.
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
--- NOTE | 2024-03-24 12:37 | PC.NURSE ---
Blake is requesting to go to the ER for a crisis evaluation d/t severe anxiety. He is c/o having panic attacks. Patient noted to have increased breathing and tremulousness. Having difficulty following directions regarding slowing down his breathing, reports he cant stop. C/O nausea which has been ongoing for 9 months which is very distressing for him. He has been repeating questions over and over d/t anxiety. Focused on when the doctor is going to see him again after seeing him this morning. He is preseverating on this. He denied SI or thoughts to harm himself. [facility] staff escorted patient to the ER for a crisis evaluation. Spoke to Gita from [facility] care team and reviewed patient information with her. Nurse to Nurse done with Reji CORADO in the mental health pod.
--- NOTE | 2024-03-24 13:39 | HO.PHP ---
[facility] staff member was running group three, in which Blake was taking a break in the kitchen after meeting with PHP staff member Siomara. While the group was in progress, it was interrupted to Blake screaming. PHP staff member had to step out of group to assist Blake. Blake disclosed that he would like to go to the hospital and that he is having a panic attack. PHP staff member was trying to further assess but it only caused Blake to become more irritable. Blake had his on the phone and asked the staff member to speak with her. [facility] staff member was unable to provide her with any answers around what the situation was since she just stepped out of group. PHP staff member noted that she will be taking him to the ED to get further assessed. Blake appeared very forgetful and kept asking the same questions. Lassiter irritability fluctuate. Blake was brought to [facility] ED where he was further assessed by the care team.
--- NOTE | 2024-03-24 20:26 | HO.PHPPROGNO ---
Subjective Subjective Date of Service: 03/24/24 Reason For Visit: OCD,MDD,BRITTNY Interim History: Patient seen this morning upon making a scene and was highly anxious, insisting that he needed to be seen immediately by the provider, and was unable to be redirected. Upon entering my office his anxiety was escalating, and kept insisting we had an appointment to meet today at 9:45 am (although it was a little last 9am) and had difficulty focusing on any discussion. He was short of breath and kept repeating that we needed to meet and was frantically flipping through his papers saying her wrote down 9:45. He did not immediately respond to reassurance that he was here with me and that we could discuss his concerns presently. He got worked up and we tried to take some time to focus on breathing and centering, although he continued to ramble somewhat breathlessly. I suggested we could call his so that he could hear her voice and would allow me the opportunity to gather some history about previous medication trials, while he could quietly listen and try to catch his breath, which he readily agreed to and kept pleading for me to dial the number faster. Spoke with Any ([phone]) who reviewed which medications patient had previously been on. (medication list was updated and included in Admission Note from 03/20) We discussed getting labwork done to check on routine labs as well as TFTs and nutritional panel, just to make sure his LT4 dose is not too high, which could account for some of his symptoms - anxiety, tremulousness, nausea, diarrhea - per patient's his LT4 (as well as Lexapro) was increased in the past year, which seems to coincide with patient's report that this year has been far worse than usual in terms of his anxiety and subsequent GI problems. Energy low, sleep intact for most part, appetite minimal but able to eat small meal or snacks. Medication Compliance: Yes Side effects from medications: No Attending Groups: Yes Review of Systems Acute medical concerns: No Mental Status Exam Mental Status Exam Patient Appearance: Unkempt Patient Orientation: Person and Place Level of Consciousness: Awake and Alert Patient Behavior: Dependent, Restless, Anxious, Resistive to Care, Invasion - Personal Space, Distractible and Impulsive Mood Description: Depressed and Anxious Affect Description: Fearful, Anxious, Sad and Apprehensive Ability to Follow Directions: Fair Speech Pattern: Perseverating, Spontaneous Speech and Stuttering Memory Description: Remote Impaired and Episodic Impaired Hallucinations: None Delusions: Not Present Thought Process: Distracted and Rumination Thought Content: positive for Circumstantial and positive for Preoccupation Abnormal Motor Activity Signs and Symptoms: Restlessness Judgement: Fair Diagnostics Vital Signs (24Hr): BMI result Body Mass Index 25.9 Assessment & Plan Assessment & Plan (1) BRITTNY (generalized anxiety disorder): Status: Acute Code(s): F41.1 - Generalized anxiety disorder (2) OCD (obsessive compulsive disorder): Status: Acute Code(s): F42.9 - Obsessive-compulsive disorder, unspecified (3) MDD (major depressive disorder), recurrent episode, severe: Status: Acute Code(s): F33.2 - Major depressive disorder, recurrent severe without psychotic features (4) Other specified anxiety disorders: Status: Acute Code(s): F41.8 - Other specified anxiety disorders Assessment and Plan: Panic attacks and somatic anxiety, possibly some unspecified somatoform disorder r/o anxiety caused by general medical condition (r/o hyperthyroidism d/t LT4 excess) (5) Mental disorder: Status: Acute Code(s): F99 - Mental disorder, not otherwise specified Assessment and Plan: r/o MCI (6) 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: Status: Acute Code(s): F60.7 - Dependent personality disorder Assessment and Plan: r/o Dependent PD Plan we discussed bumping up quetiapine 25 mg from BID to TID dosing also starting PRN Vistaril 25 mg for anxiety/nausea, but may just limit this to the evening since may cause confusion d/t anticholinergic effects I suggest we lower the dose of escitalopram to 15 mg qd since he has been on this dose now for at least a month and is perhaps causing some overstimulation, possibly along with Buspar - we may consider switching to mirtazapine > TCA (nortiptyline) which may be more tolerable and help with GI problems continue other medications for now Patient educated on: diagnosis and medication risk/benefits Informed Consent: understands Reason for contiued partial hosp. stay Substantial Risk for: inability to function and med/psych decompensation Certification I certify that partial hospital treatment is medically necessary due to the symptoms and problems resulting from the patient's mental illness and the failure to treat the patient at the partial hospital level of care would likely result in the patient requiring inpatient psychiatric care which could not be prevented at a less intensive level of care. Total time managing care of this patient today ___45_ minutes. Discharge Plan Discharge Attending provider: Zuleika Del Valle Medications: New ondansetron HCl 4 mg tablet 4 mg PO Q8H PRN (Reason: nausea) Qty: 10 0RF escitalopram oxalate 10 mg tablet 15 mg PO DAILY 14 Days Qty: 21 0RF No Action propranolol 10 mg tablet 1 tab PO BID magnesium oxide 400 mg (241.3 mg magnesium) tablet 1 tab PO DAILY simvastatin 20 mg tablet 1 tab PO BEDTIME ezetimibe 10 mg tablet 1 tab PO DAILY Centrum Silver Men tablet 1 tab PO DAILY cholecalciferol (vitamin D3) 2,000 units capsule 1 tab PO DAILY Rx Instructions: 1 tab PO DAILY clonazepam [Klonopin] 1 mg Tablet 1 mg PO TID tamsulosin 0.4 mg Capsule 0.4 mg PO DAILY vitamin B complex [B Complex 100] Tablet 1 tab PO DAILY Rx Instructions: Patient stated he takes twice a day famotidine 40 mg Tablet 40 mg PO BEDTIME buspirone [BuSpar] 15 mg Tablet 15 mg PO TID escitalopram oxalate 20 mg Tablet 20 mg PO DAILY levothyroxine 175 mcg Tablet 175 mcg PO DAILY Rx Instructions: Take at 0600 am. sennosides [senna] 8.6 mg Tablet 34.4 mg PO BEDTIME Rx Instructions: Take 4 tabs at bedtime. sucralfate 1 gram Tablet 1 g PO BID Rx Instructions: Take at 11:00 pm at bedtime. alum-mag hydroxide-simeth [Maalox] 200-200-20 mg/5 mL Suspension 30 ml PO Q6H PRN (Reason: Nausea) Rx Instructions: 1 and 3 hours after meals and at bedtime quetiapine 25 mg Tablet 25 mg PO BID PRN (Reason: Severe Anxiety) polyethylene glycol 3350 [Miralax] 17 gram Powder In Packet 17 g PO DAILY PRN (Reason: Severe Constipation) Print Language: Mauritian
--- NOTE | 2024-03-26 23:23 | PM.EVENT ---
Event Note Date of Service: 03/26/24 Event Note: Reached out to speak with patient this afternoon. He sounded calm but became more anxious with engaging in conversation. There are still some lab work I would like to obtain aside from routine labs that were done in ED as well as follow up on FT4 level. I also advised lowering Lexapro dose from 20 mg to 15 mg in case it is contributing/causing adverse effects (n/v/d, overactivation). Patient is agreeable but deferential to his 's decision and requests that I call his Any ([phone]) to let her know. (I attempted to reach her, but left a VM message about remaining lab work order and decrease in dose of Lexapro to 15 mg, and informed her that Rx for 10 mg tablets x 1.5/day sent to pharmacy). Lab slip left at front end application developer, patient plans to come early tomorrow am for lab draw. Time Spent With Patient Time: Total time managing care of this patient today _10___ minutes.
--- NOTE | 2024-04-02 23:41 | HO.PHPPROGNO ---
Subjective Subjective Date of Service: 04/02/24 Reason For Visit: OCD,MDD,BRITTNY Interim History: Spoke with Any Patient seen for follow-up, anticipating discharge at the end of program today.? Initially presents as calmer, a little brighter, less anxious. Reports no acute issues or concerns aside from asking for more Zofran which when I explained that this is not meant to be taken long-term, he started to panic and in reviewing his GI complaints and current medication says he cant understand and asks that we call his Any to include in on conversation since she manages his medications. He calms down once nAy answers and listens quietly as Any and I review his medication list. Sleep, energy are intact. Eats somewhat restricted diet of turkey sandwiches every meal but reportedly eats sufficiently. She requested refill on Zofran which patient started in with repeating this request and I agree to sending over another short script but otherwise will need to defer to his PCP for ongoing management of his GI sx. I reiterated my thoughts that he may be experiencing serotonergic side effects from the escitalpram which may be exacerbating his anxiety and GI symptoms especially at 20 mg where it has been for the past several months, and would likely benefit from lowering the dose. Consideration regarding possible serotonin syndrome with agitation, anxiety, GI symptoms, shakiness, ?AMS, ?autonomic instability however patient vitals normalized once rechecked. I have approached this with patient who has been reluctant to make any medication changes while at partial. I share with Any that I had recommended that patient lower dose to 15 mg which he may better tolerate (and reportedly did not benefit when dose was increased from over 10 mg and agrees to bring this up with his provider. Upon inquiry I learn that patient usually takes all his medication on an empty stomach in the morning (he typically does not eat until later in the morning/lunch time. I advise that patient should avoid taking medications on an empty stomach (aside from LT4 which he takes first thing in the AM), other exceptions include clonazepam, ondansetron which may be taken with or without food. All other medication I advise he take with food as this may have caused irritation to his gut and is a possible cause of the nausea. Patient would also benefit from broader range of diet (suboptimal zinc level at 68) preferably 80-100, suggest including sources of zinc in diet or supplementation. ? I have had concerns regarding patient's cognitive status. Query cognitive decline, although patient does have a long history of anxiety and codependency, however he presents as rather easily dysregulated and emotionally regressed during his stay at [facility]. I had been wanting to obtain a mini mental/cognitive test (MoCA) but had not had the opportunity to due to patient being in a panicked state when we met. Today he was oriented to self and [facility] but when asked for the day/date/year (without looking into his agenda, which he was trying to do) he started to panic and asking if we could call Any again to defer further questions to her. He appears to still get easily overwhelmed by situations and seems to struggle with conversations where questions go beyond superficial inquiries. A panic attack ensues in the moments when I left the room to go to fetch the discharge paperwork. Says he was doesn't know what to do without Zofran. I assure him the script was sent and he eventually calms down. He has appointments with Dr. Phelps on 04/09 at 9am and therapist Yun Tomlin on Thursday 04/05. PCP is Carissa Cameron ADMISSIONS CLERK. He still endorses a lot of anxiety, denies any thoughts of giving up on life. Denies thoughts of harming self or others at this time. Medication Compliance: Yes Side effects from medications: No Attending Groups: Yes Review of Systems Acute medical concerns: No Mental Status Exam Mental Status Exam Patient Appearance: Unkempt Patient Orientation: Person and Place Level of Consciousness: Awake and Alert Patient Behavior: Dependent and Anxious Mood Description: Anxious Affect Description: Calm, Anxious and Apprehensive Ability to Follow Directions: Fair Speech Pattern: Perseverating and Spontaneous Speech Memory Description: Normal for Patient Hallucinations: None Delusions: Not Present Thought Process: Distracted Thought Content: positive for Circumstantial and positive for Perseveration Judgement: Fair Diagnostics Vital Signs (24Hr): BMI result Body Mass Index 25.9 Assessment & Plan Assessment & Plan (1) BRITTNY (generalized anxiety disorder): Status: Acute Code(s): F41.1 - Generalized anxiety disorder (2) Other specified anxiety disorders: Status: Acute Code(s): F41.8 - Other specified anxiety disorders Assessment and Plan: r/o Anxiety disorder related to general medical/GI problem r/o Somatoform disorder r/o Panic Disorder (3) MDD (major depressive disorder), recurrent episode, severe: Status: Acute Code(s): F33.2 - Major depressive disorder, recurrent severe without psychotic features (4) History of OCD (obsessive compulsive disorder): Status: Acute Code(s): Z86.59 - Personal history of other mental and behavioral disorders Assessment and Plan: . (5) Cognitive and neurobehavioral dysfunction: Status: Acute Code(s): F09 - Unspecified mental disorder due to known physiological condition Assessment and Plan: needs to be further explored r/o Neurocognitive disorder r/o personality disorder (cluster C) Plan Discharge from [facility] renewed short script of ondansetron 4 mg BID PRN nausea #8 Patient advised to avoid taking medications on on empty stomach (except LT4) clonazepam, ondansetron may be taken +/- food Patient did not lower dose of escitalopram to 15 mg qd (patient continues at 20 mg and did not lower dose). ?agrees that this makes sense and will plan to discuss w OP provider if patient is reluctant to make change may start zinc 8-11 mg/day and recheck levels in 2-3 months Routine lab work reviewed with patient and spouse MoCA was unable to be obtained this admission, will defer cognitive assessment to outpatient psych provider and consider appropriateness of referral to [facility] treatment plan reviewed with patient and spouse defer further medication management to outpatient provider Patient educated on: diagnosis, medication risk/benefits, medical condition and other (serotonin syndrome) Informed Consent: understands Reason for contiued partial hosp. stay Substantial Risk for: stable for discharge and other (at baseline level of anxiety and functioning) Certification I certify that partial hospital treatment is medically necessary due to the symptoms and problems resulting from the patient's mental illness and the failure to treat the patient at the partial hospital level of care would likely result in the patient requiring inpatient psychiatric care which could not be prevented at a less intensive level of care. Total time managing care of this patient today __60__ minutes. Discharge Plan Discharge Attending provider: Zuleika Del Valle Additional Instructions: Blake has a med provider, Lalita Phelps, in which his next scheduled appointment is on April 09, 2024 at 9 AM via telehealth. Blake has an OP therapist, Yun Yancey, in which his next scheduled appointment is on April 05, 2024 at 10 AM via teles[employer]iceX. Blake is also exploring ERP therapists for his OCD. Medications: New escitalopram oxalate 10 mg tablet 15 mg PO DAILY 14 Days Qty: 21 0RF Continued propranolol 10 mg tablet 1 tab PO BID magnesium oxide 400 mg (241.3 mg magnesium) tablet 1 tab PO DAILY simvastatin 20 mg tablet 1 tab PO BEDTIME ezetimibe 10 mg tablet 1 tab PO DAILY Centrum Silver Men tablet 1 tab PO DAILY cholecalciferol (vitamin D3) 2,000 units capsule 1 tab PO DAILY Rx Instructions: 1 tab PO DAILY clonazepam [Klonopin] 1 mg Tablet 1 mg PO TID tamsulosin 0.4 mg Capsule 0.4 mg PO DAILY vitamin B complex Tablet 1 tab PO DAILY Rx Instructions: Patient stated he takes twice a day famotidine 40 mg Tablet 40 mg PO BEDTIME buspirone 15 mg Tablet 15 mg PO TID levothyroxine 175 mcg Tablet 175 mcg PO DAILY Rx Instructions: Take at 0600 am. sennosides [senna] 8.6 mg Tablet 34.4 mg PO BEDTIME Rx Instructions: Take 4 tabs at bedtime. sucralfate 1 gram Tablet 1 g PO BID Rx Instructions: Take at 11:00 pm at bedtime. alum-mag hydroxide-simeth 200-200-20 mg/5 mL Suspension 30 ml PO Q6H PRN (Reason: Nausea) Rx Instructions: 1 and 3 hours after meals and at bedtime quetiapine 25 mg Tablet 25 mg PO BID PRN (Reason: Severe Anxiety) polyethylene glycol 3350 [Miralax] 17 gram Powder In Packet 17 g PO DAILY PRN (Reason: Severe Constipation) Changed ondansetron HCl 4 mg tablet 4 mg PO BID PRN (Reason: nausea) Qty: 8 0RF Discontinued escitalopram oxalate 20 mg Tablet 20 mg PO DAILY Stand Alone Forms: Patient Portal Discharge page Print Language: Luxembourgish
== END 2024-04-02 23:59 | disposition home or self-care (01) ==
LOC: HO.PHPA 10:15
PROVIDERS: Visit Provider Psychiatry & Neurology Psychiatry
DX: F41.1 Generalized anxiety disorder (principal); F41.8 Other specified anxiety disorders; F33.2 Major depressive disorder, recurrent severe without psychotic features; F42.9 Obsessive-compulsive disorder, unspecified; F99 Mental disorder, not otherwise specified; F60.7 Dependent personality disorder; Z86.59 Personal history of other mental and behavioral disorders
CPT/HCPCS: 90791; 90853

== ENCOUNTER 2024-08-03 11:38 | Inpatient (IN) | payer MEDICARE, SELFPAY ==
[2024-08-03 12:10] VITALS: BP 132/70; PULSE 56; RESP 16; TEMP 36.6; O2SAT 100
--- NOTE | 2024-08-03 14:41 | PC.NURSE ---
pt uses CPAP at night. pt assessed for safety, is able to remain safe with assistive device, placed on 5 min check for safety and per protocol for first 24 hours.
[2024-08-03] MEDS: busPIRone HCl 5 MG TABLET 15 MG PO ×2 (16:46→20:07)
[2024-08-03] MEDS: clonazePAM 1 MG TABLET PO ×2 (16:47→20:07)
[2024-08-03] MEDS: Omeprazole 20 MG CAPSULE.DR PO (16:47)
[2024-08-03] MEDS: Sucralfate 1 GM TABLET PO (16:47)
[2024-08-03 17:06] VITALS: BMI 23.5
--- NOTE | 2024-08-03 17:31 | PC.ADMIT ---
Blake was admitted to S1 from [facility] ED on 08/03/24 at 11:50 on a 12a for the treatment of anxiety. Skin/contraband check was completed upon arrival. He is alert and oriented x4. He signed a CV on arrival. He self presented to the ED with his and his reported that he had been at home carrying a butterknife with thoughts to cut his wrists, on admit he denies this and stated that he does not know why he was carrying the butterknife. He reports increased anxiety and chronic nausea. He told this bond underwriter he has an appointment with a stone breaker on 08/11/24 that he has been waiting for and he is hoping to be discharged in time for that. He denies suicidal and homicidal thoughts and intent. He denies auditory and visual hallucinations. He was pleasant and cooperative with admission process. He states he uses THC edible gummies for nausea as needed. He reports his goal for admission is to get on medications and be more social.
[2024-08-03 20:00] VITALS: BP 103/57; BP 94/52; PULSE 53; PULSE 61; TEMP 36.6; TEMP 36.8; O2SAT 96
[2024-08-03] MEDS: QUEtiapine Fumarate 25 MG TABLET PO (20:07)
--- NOTE | 2024-08-04 06:18 | P.CONHOSP_ITS ---
History of Present Illness Data of Consult Service Date: 08/04/24 Requesting physician: Daniela Villareal Primary Care Provider: Unknown Physician HPI Reason for consult: medical consult Patient is a 74-year-old male with a past medical history significant for AKHIL on CPAP, HLD, chronic constipation, GERD, hypothyroid, BPH, anxiety, admitted to [address] psych from [facility] due to anxiety and ?SI, consult placed for medical clearance. Patient has no acute medical concerns including chest pain, shortness of breath, nausea, vomiting, headache, change in vision, URI symptoms or urinary symptoms including dysuria frequency or urgency. He has multiple specialist appointments coming up these concerned about missing. Review of Systems Constitutional: Constitutional: Denies chills, Denies fatigue, Denies fever(s) and Denies headache(s) Eyes: Eyes: Denies change in vision and Denies photophobia ENT: Denies headache(s), Denies nasal congestion, Denies nasal discharge and Denies sore throat Cardiovascular: Cardiovascular: Denies chest pain, Denies rapid heart rate, Denies leg edema, Denies lightheadedness and Denies dyspnea Respiratory: Respiratory: Denies chest congestion, Denies cough, Denies dyspnea and Denies wheezing Gastrointestinal: Gastrointestinal: Denies constipation, Denies diarrhea, Denies nausea and Denies vomiting Musculoskeletal: Musculoskeletal: Denies back pain Integumentary/Breasts: Skin/Breast: Denies rash Neurologic: Denies confusion and Denies headache(s) Psychiatric: Psychiatric: Denies confusion Endocrine: Endocrine: Denies fatigue Hematologic/Lymphatic: Hematologic/Lymphatic: Denies easy bleeding and Denies easy bruising Allergic/Immunologic: Allergic/Immunologic: Denies wheezing [facility] Medical History Gall stones Kidney stone Renal cyst History of headache Sleep apnea Cataract Arthritis Hypothyroid GERD (gastroesophageal reflux disease) Hx of hepatitis OCD (obsessive compulsive disorder) Anxiety Depression Elevated cholesterol HTN (hypertension) Functional capacity: independent ambulation Surgical History Hx of tonsillectomy Social History Household Members: Spouse Household Members Other:: N/A Housing: Condominium Are you a primary medical care evaluation specialist to a significant other at home: No Do you presently have visiting nurse or other home services: No Patient Tobacco Use Status: Never used Tobacco Use of substances other than those prescribed or required for medical reasons: No Substance Use Type: Marijuana Substance Use Frequency: Occasionally Last Used Substance: Unknown Currently Displaying Signs/Symptoms of Drug Intoxication Withdrawal: No Any prior treatment program specific to substance use: No Have you been hit, kicked, punched, or otherwise hurt by someone within the past year? If so, by whom?: No Do you feel safe in your current relationship?: Yes Is there a partner from a previous relationship who is making you feel unsafe now?: No Are you made to feel afraid or neglected: No Advance Directives: No Advance Directives Information Provided: Yes Advance Directives Date on File: 03/30/20 Do you have thoughts of harming others: None Do you have a plan to hurt others: No Plan Recently lost weight without trying: Yes How much weight loss: 34pounds or more Eating poorly because of decreased appetite: No Nutrition screen score: 6 Poor oral hygiene: No Narrative: No smoking, alcohol or drug use Meds Allergies Allergy/AdvReac Type Severity Reaction Status Date / Time fluvoxamine [From LUVOX] AdvReac Unknown HEPATITIS Verified 03/24/24 12:47 NSAIDS (Non-Steroidal AdvReac Unknown GI ISSUES Verified 03/24/24 12:47 Anti-Inflamma [NSAIDS (NON-STEROIDAL ANTI-INFLAMMA] Active Medications: Current Medications Acetaminophen (Acetaminophen 325 Mg Tablet) 650 mg PO Q6H PRN PRN Reason: Headache/Pain, Scale 1-10 Al Hydroxide/Mg Hydroxide (Magnesium Hydrox/Alum Hydrox 30 Ml Oral.Susp) 30 ml PO Q6H PRN PRN Reason: Heartburn/Nausea Atorvastatin Calcium (Atorvastatin Calcium 10 Mg Tablet) 10 mg PO DAILY COUNTS INCLUDE 234 BEDS AT THE [facility] Buspirone HCl (Buspirone Hcl 5 Mg Tablet) 15 mg PO TID COUNTS INCLUDE 234 BEDS AT THE [facility] Last Admin: 08/03/24 20:07 Dose: 15 mg Clonazepam (Clonazepam 1 Mg Tablet) 1 mg PO TID COUNTS INCLUDE 234 BEDS AT THE [facility] Last Admin: 08/03/24 20:07 Dose: 1 mg Ezetimibe (Ezetimibe 10 Mg Tablet) 10 mg PO DAILY COUNTS INCLUDE 234 BEDS AT THE [facility] Escitalopram Oxalate (Escitalopram Oxalate 5 Mg Tablet) 15 mg PO DAILY COUNTS INCLUDE 234 BEDS AT THE [facility] Famotidine (Famotidine 20 Mg Tablet) 40 mg PO BEDTIME COUNTS INCLUDE 234 BEDS AT THE [facility] Last Admin: 08/03/24 20:36 Dose: Not Given Hydroxyzine HCl (Hydroxyzine Hcl 25 Mg Tablet) 25 mg PO Q6H PRN PRN Reason: mild anxiety Levothyroxine Sodium (Levothyroxine Sodium 175 Mcg Tablet) 175 mcg PO DAILY@0600 COUNTS INCLUDE 234 BEDS AT THE [facility] Magnesium Hydroxide (Milk Of Magnesia 30 Ml Oral.Susp) 30 ml PO DAILY PRN PRN Reason: Constipation Magnesium Oxide (Magnesium Oxide 400 Mg Tablet) 400 mg PO DAILY COUNTS INCLUDE 234 BEDS AT THE [facility] Multivitamins/Vitamin C (Multivitamin Tablet) 1 tab PO DAILY COUNTS INCLUDE 234 BEDS AT THE [facility] Patient Own Medication ( Linaclotide 72 Mcg) 72 mcg PO DAILY COUNTS INCLUDE 234 BEDS AT THE [facility] Last Admin: 08/03/24 17:50 Dose: Not Given Omeprazole (Omeprazole 20 Mg Capsule.Dr) 20 mg PO BID@0630,1630 COUNTS INCLUDE 234 BEDS AT THE [facility] Last Admin: 08/03/24 16:47 Dose: 20 mg Ondansetron HCl (Ondansetron Odt 4 Mg Tab.Rapdis) 4 mg TRANSLINGU Q12H PRN PRN Reason: Nausea and Vomiting Prochlorperazine Maleate (Prochlorperazine Maleate 5 Mg Tablet) 5 mg PO BID PRN PRN Reason: Nausea Propranolol HCl (Propranolol Hcl 10 Mg Tablet) 5 mg PO BID COUNTS INCLUDE 234 BEDS AT THE [facility]; Protocol Last Admin: 08/03/24 20:36 Dose: Not Given Quetiapine Fumarate (Quetiapine Fumarate 25 Mg Tablet) 25 mg PO BID PRN PRN Reason: severe anxiety Last Admin: 08/03/24 20:07 Dose: 25 mg Sucralfate ([facility] Gm [facility] Last Admin: 08/03/24 16:47 Dose: 1 gm Tamsulosin HCl (Tamsulosin Hcl 0.4 Mg Capsule) 0.4 mg PO DAILY COUNTS INCLUDE 234 BEDS AT THE [facility] Trazodone HCl (Trazodone Hcl 50 Mg Tablet) 50 mg PO BEDTIME MRX1 PRN PRN Reason: Insomnia Vitamin D (Cholecalciferol (Vitamin D3) 10 Mcg Tablet) 20 mcg PO DAILY COUNTS INCLUDE 234 BEDS AT THE [facility] Home Medications ?Medication ?Instructions ?Recorded ?Confirmed ?Last Taken ?Type Centrum Silver Men 1 tab PO DAILY 03/29/20 08/03/24 06/23/21 07:30 History cholecalciferol (vitamin D3) 1 tab PO DAILY 03/29/20 08/03/2422 07:30 History ezetimibe 10 mg tablet 1 tab PO DAILY 03/29/20 08/03/24 06/23/21 07:30 History magnesium oxide 400 mg (241.3 mg 1 tab PO DAILY 03/29/20 08/03/24 06/23/21 07:30 History magnesium) tablet propranolol 10 mg tablet 1 tab PO BID 03/29/20 08/03/24 06/23/21 07:30 History simvastatin 20 mg tablet 1 tab PO BEDTIME 03/29/20 08/03/24 06/23/21 07:30 History clonazepam 1 mg tablet (Klonopin) 1 mg PO TID 06/23/21 08/03/24 06/23/21 07:30 History tamsulosin 0.4 mg capsule 0.4 mg PO DAILY 06/23/21 08/03/24 06/22/21 21:30 History vitamin B complex 1 tab PO DAILY 06/23/21 08/03/24 06/23/21 07:30 History buspirone 15 mg tablet 15 mg PO TID 03/19/24 08/03/24 Unknown History famotidine 40 mg tablet 40 mg PO BEDTIME 03/19/24 08/03/24 Unknown History levothyroxine 175 mcg tablet 175 mcg PO DAILY 03/19/24 08/03/24 Unknown History quetiapine 25 mg tablet 25 mg PO BID PRN Severe Anxiety 03/19/24 08/03/24 Unknown History sucralfate 1 gram tablet 1 g PO BID 03/19/24 08/03/24 Unknown History linaclotide 72 mcg capsule 72 mcg PO DAILY 08/03/24 08/03/24 Unknown History (Linzess) pantoprazole 40 mg tablet,delayed 40 mg PO BID 08/03/24 08/03/24 Unknown History release (Protonix) prochlorperazine maleate 5 mg 5 mg PO BID PRN Nausea 08/03/24 08/03/24 Unknown History tablet (Compazine) Physical Exam Vital Signs and Narrative: Vital Signs: Last Vital Signs Temp 97.9 F 08/03/24 20:00 Pulse 61 08/03/24 20:00 Resp 16 08/03/24 12:10 BP 103/57 L 08/03/24 20:00 Pulse Ox 96 08/03/24 20:00 O2 Del Method Room Air 08/03/24 20:00 BMI result Body Mass Index 23.5 General: AOx3, no acute distress Resp: CTA bilaterally CVS: S1, S2, RRR GI: +BS, NT, no distention Skin: Warm, dry Neuro: Cranial nerves II-XII grossly intact bilaterally. Motor grossly intact bilaterally. strength 5/5 bilateral upper and lower extremities. 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 No acute medical concerns. Mood disorder - plan per psych AKHIL - CPAP at night HLD - continue ezetimibe, simvastatin chronic constipation - continue linzess hypothyroid - continue levothyroxine BPH - continue tamsulosin Thank you for allowing me to participate in the pt's care. Signing off for now. Please contact the medical team if any questions or concerns.
[2024-08-04 07:43] LABS: Estimated Average Glucose 103 mg/dL; Hemoglobin A1C 127.6175 umol/L; Hemoglobin A1c % 5.2 % (<6.0); Total Hemoglobin (HGBA1C) 3870.5898 umol/L
[2024-08-04 07:50] LABS: Cholesterol 143 mg/dL (<200); HDL Cholesterol 58 mg/dL (>40); LDL Cholesterol Calculated 71 mg/dL (<100); Magnesium 2.1 mg/dL (1.6-2.6); Triglycerides 72 mg/dL (<150)
[2024-08-04 08:00] VITALS: BP 117/57; PULSE 69; RESP 18; TEMP 36.4; O2SAT 99
[2024-08-04 08:04] LABS: Free T4 (Free Thyroxine) 1.14 ng/dL (0.71-1.85); Thyroid Stimulating Hormone 0.77 uIU/mL (0.32-4.0)
[2024-08-04 08:19] LABS: Folate 14.3 ng/mL (> or = 4.0); Vitamin B12 757 pg/mL (200-900)
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
[2024-08-04] MEDS: Escitalopram Oxalate 5 MG TABLET 15 MG PO (08:50)
[2024-08-04] MEDS: busPIRone HCl 5 MG TABLET 15 MG PO ×3 (08:50→20:02)
[2024-08-04] MEDS: Tamsulosin HCL 0.4 MG CAPSULE PO (08:51)
[2024-08-04] MEDS: Sucralfate 1 GM TABLET PO ×2 (08:51→16:07)
[2024-08-04] MEDS: Ezetimibe 10 MG TABLET PO (08:51)
[2024-08-04] MEDS: Multivitamin TABLET 1 TAB PO (08:51)
[2024-08-04] MEDS: clonazePAM 1 MG TABLET PO ×3 (08:52→20:03)
[2024-08-04] MEDS: Magnesium Oxide 400 MG TABLET PO (08:52)
[2024-08-04] MEDS: Cholecalciferol (Vitamin D3) 10 MCG TABLET 20 MCG PO (08:52)
[2024-08-04] MEDS: Atorvastatin Calcium 10 MG TABLET PO (08:52)
[2024-08-04 08:55] VITALS: BP 117/57; PULSE 69
[2024-08-04] MEDS: Omeprazole 20 MG CAPSULE.DR PO ×2 (09:37→16:07)
[2024-08-04] MEDS: QUEtiapine Fumarate 25 MG TABLET PO ×2 (11:29→20:03)
[2024-08-04 20:00] VITALS: BP 123/71; PULSE 67; RESP 16; TEMP 35.9; O2SAT 100
[2024-08-04] MEDS: Prochlorperazine Maleate 5 MG TABLET PO (20:02)
[2024-08-04] MEDS: Famotidine 20 MG TABLET 40 MG PO (20:03)
--- NOTE | 2024-08-05 01:45 | PC.RT ---
Due to a sleep lab equipment unavailable. We will not be able to do slepp studies at this time. [place] Operator of Resp to send an email to all providers.
[2024-08-05] MEDS: Sennosides 8.6 MG TABLET 8.8 MG PO (03:36)
[2024-08-05] MEDS: Levothyroxine Sodium 175 MCG TABLET PO (05:52)
[2024-08-05] MEDS: Omeprazole 20 MG CAPSULE.DR PO ×2 (06:35→16:20)
[2024-08-05 08:00] VITALS: BP 130/78; PULSE 73; RESP 18; TEMP 36.2; O2SAT 99
[2024-08-05] MEDS: Cholecalciferol (Vitamin D3) 10 MCG TABLET 20 MCG PO (08:27)
[2024-08-05] MEDS: Escitalopram Oxalate 5 MG TABLET 15 MG PO (08:27)
[2024-08-05] MEDS: Tamsulosin HCL 0.4 MG CAPSULE PO (08:27)
[2024-08-05] MEDS: Sucralfate 1 GM TABLET PO ×2 (08:27→16:20)
[2024-08-05] MEDS: Ezetimibe 10 MG TABLET PO (08:27)
[2024-08-05] MEDS: clonazePAM 1 MG TABLET PO ×3 (08:27→20:27)
[2024-08-05] MEDS: busPIRone HCl 5 MG TABLET 15 MG PO ×3 (08:28→20:29)
[2024-08-05] MEDS: Atorvastatin Calcium 10 MG TABLET PO (08:28)
[2024-08-05] MEDS: Multivitamin TABLET 1 TAB PO (08:28)
[2024-08-05] MEDS: Magnesium Oxide 400 MG TABLET PO (08:28)
[2024-08-05 08:31] VITALS: BP 130/78; PULSE 73
[2024-08-05] MEDS: QUEtiapine Fumarate 25 MG TABLET 12.5 MG PO ×3 (09:22→20:26)
--- NOTE | 2024-08-05 10:30 | HO.PSYCHPN ---
Subjective Subjective Date of Service: 08/05/24 Reason For Visit: Major depression, generalized anxiety, OCD Subjective Notes: Conditional Voluntary Interim History: The nursing staff reported that hte patient has been very anxious, compliant with his treatment. He needed PRN medications. On interview, he reported that he has been very anxious, he adamantly denies suicidal thoughts. We discussed that I started him on a low dose of Seroquel to target his anxiety and he was willing to recant his 3 day notice so we can titrate him accordingly. Mental Status Exam Mental Status Exam Patient Appearance: Appropriate Patient Orientation: Person, Place and Situation Level of Consciousness: Awake and Appropriate Patient Behavior: Guarded and Passive Mood Description: Calm Affect Description: Constricted Patient Cognition Impaired: Yes Ability to Follow Directions: Good Speech Pattern: Clear Hallucinations: None Delusions: Not Present Thought Process: Distracted and Slowed Thinking Thought Content: positive for [place] and positive for Poverty of Content Judgement: Fair Diagnostics Vital Signs (24Hr): Vital Signs - 24 hr 08/04/24 20:00 08/05/24 08:00 08/05/24 08:31 Temperature 96.6 F L 97.1 F Pulse Rate 67 73 73 Respiratory Rate 16 18 Blood Pressure 123/71 130/78 130/78 Pulse Oximetry 100 99 Oxygen Delivery Method Room Air Room Air BMI result Body Mass Index 23.5 Labs Labs: Laboratory Results - last 48 hr 08/04/24 08/04/24 07:15 07:16 Estimat Average Glucose 103 Hemoglobin A1c % 5.2 Magnesium 2.1 Triglycerides 72 Cholesterol 143 LDL Cholesterol, Calc 71 HDL Cholesterol 58 Vitamin B12 757 Folate 14.3 TSH 0.77 Free T4 1.14 Medications Medications Current Medications Acetaminophen (Acetaminophen 325 Mg Tablet) 650 mg PO Q6H PRN PRN Reason: Headache/Pain, Scale 1-10 Al Hydroxide/Mg Hydroxide (Magnesium Hydrox/Alum Hydrox 30 Ml Oral.Susp) 30 ml PO Q6H PRN PRN Reason: Heartburn/Nausea Atorvastatin Calcium (Atorvastatin Calcium 10 Mg Tablet) 10 mg PO DAILY [facility] Last Admin: 08/05/24 08:28 Dose: 10 mg Buspirone HCl (Buspirone Hcl 5 Mg Tablet) 15 mg PO TID [facility] Last Admin: 08/05/24 08:28 Dose: 15 mg Clonazepam (Clonazepam 1 Mg Tablet) 1 mg PO TID [facility] Last Admin: 08/05/24 08:27 Dose: 1 mg Ezetimibe (Ezetimibe 10 Mg Tablet) 10 mg PO DAILY [facility] Last Admin: 08/05/24 08:27 Dose: 10 mg Escitalopram Oxalate (Escitalopram Oxalate 5 Mg Tablet) 15 mg PO DAILY [facility] Last Admin: 08/05/24 08:27 Dose: 15 mg Famotidine (Famotidine 20 Mg Tablet) 40 mg PO BEDTIME [facility] Last Admin: 08/04/24 20:03 Dose: 40 mg Hydroxyzine HCl (Hydroxyzine Hcl 25 Mg Tablet) 25 mg PO Q6H PRN PRN Reason: mild anxiety Levothyroxine Sodium (Levothyroxine Sodium 175 Mcg Tablet) 175 mcg PO DAILY@0600 [facility] Last Admin: 08/05/24 05:52 Dose: 175 mcg Magnesium Hydroxide (Milk Of Magnesia 30 Ml Oral.Susp) 30 ml PO DAILY PRN PRN Reason: for continued Constipation Magnesium Oxide (Magnesium Oxide 400 Mg Tablet) 400 mg PO DAILY [facility] Last Admin: 08/05/24 08:28 Dose: 400 mg Multivitamins/Vitamin C (Multivitamin Tablet) 1 tab PO DAILY [facility] Last Admin: 08/05/24 08:28 Dose: 1 tab Patient Own Medication ( Linaclotide 72 Mcg) 72 mcg PO DAILY [facility] Last Admin: 08/05/24 08:31 Dose: Not Given Omeprazole (Omeprazole 20 Mg Capsule.Dr) 20 mg PO BID@0630,1630 [facility] Last Admin: 08/05/24 06:35 Dose: 20 mg Ondansetron HCl (Ondansetron Odt 4 Mg Tab.Rapdis) 4 mg TRANSLINGU Q12H PRN PRN Reason: Nausea and Vomiting Prochlorperazine Maleate (Prochlorperazine Maleate 5 Mg Tablet) 5 mg PO BID PRN PRN Reason: Nausea Last Admin: 08/04/24 20:02 Dose: 5 mg Propranolol HCl (Propranolol Hcl 10 Mg Tablet) 5 mg PO BID [facility]; Protocol Last Admin: 08/05/24 08:31 Dose: Not Given Quetiapine Fumarate (Quetiapine Fumarate 25 Mg Tablet) 25 mg PO TID PRN PRN Reason: severe anxiety Quetiapine Fumarate (Quetiapine Fumarate 25 Mg Tablet) 12.5 mg PO TID [facility] Last Admin: 08/05/24 09:22 Dose: 12.5 mg Senna (Sennosides 8.6 Mg Tablet) 8.6 mg PO DAILY PRN PRN Reason: give first for Constipation Sucralfate (Sucralfate 1 Gm Tablet) 1 gm PO BIDAC [facility] Last Admin: 08/05/24 08:27 Dose: 1 gm Tamsulosin HCl (Tamsulosin Hcl 0.4 Mg Capsule) 0.4 mg PO DAILY [facility] Last Admin: 08/05/24 08:27 Dose: 0.4 mg Trazodone HCl (Trazodone Hcl 50 Mg Tablet) 50 mg PO BEDTIME MRX1 PRN PRN Reason: Insomnia Vitamin D (Cholecalciferol (Vitamin D3) 10 Mcg Tablet) 20 mcg PO DAILY [facility] Last Admin: 08/05/24 08:27 Dose: 20 mcg Allergies Allergies Allergy/AdvReac Type Severity Reaction Status Date / Time fluvoxamine [From LUVOX] AdvReac Unknown HEPATITIS Verified 03/24/24 12:47 NSAIDS (Non-Steroidal AdvReac Unknown GI ISSUES Verified 03/24/24 12:47 Anti-Inflamma [NSAIDS (NON-STEROIDAL ANTI-INFLAMMA] Assessment & Plan Assessment & Plan (1) History of OCD (obsessive compulsive disorder): Status: Acute Code(s): Z86.59 - Personal history of other mental and behavioral disorders (2) BRITTNY (generalized anxiety disorder): Status: Acute Code(s): F41.1 - Generalized anxiety disorder (3) MDD (major depressive disorder), recurrent episode, severe: Status: Acute Code(s): F33.2 - Major depressive disorder, recurrent severe without psychotic features Plan The patient is a 74-year-old male with a past history of OCD, major depressive disorder and panic disorder was brought into the facility after he disclosed passive suicidal thought and a gesture of cutting himself with a butter knife. He was assessed by crisis and transferring to this facility for psychiatric stabilization. Plan 1. 15 minute checks since the patient is able to contract for safety. 2. Gather more collateral information. 3. Keep Lexapro as prescribed. 4. Keep Klonopin as t.i.d.. 4. At more PRNs Seroquel p.r.n. anxiety. 6. Reassessment with results after blood work. 7. Start Seroquel 12.5 mg po tid to target anxiety. Reason for continued inpatient stay Substantial Risk for: inability to function, rapid decompensation and med/psych decompensation Time Spent With Patient Time: Total time managing care of this patient today __20__ minutes.
[2024-08-05] MEDS: Sennosides 8.6 MG TABLET PO (12:50)
--- NOTE | 2024-08-05 14:53 | MHC.CLN ---
NUTRITION CONSULT FOR REPORTED 60# WEIGHT LOSS X 18 MONTHS. REVIEW OF WEIGHT HX SHOWS WEIGHT LOSS X 4 MONTHS -9.3%. WEIGHT LOSS X 3 YEARS=-28%. CURRENT INTAKE 100%. RD TO MONITOR FOR PO INTAKE AND WEIGHT.
[2024-08-05 20:00] VITALS: BP 101/58; PULSE 62; RESP 16; TEMP 36.5; O2SAT 98
[2024-08-05] MEDS: Prochlorperazine Maleate 5 MG TABLET PO (20:23)
[2024-08-05] MEDS: Famotidine 20 MG TABLET 40 MG PO (20:26)
[2024-08-05] MEDS: QUEtiapine Fumarate 25 MG TABLET PO (20:27)
[2024-08-06] MEDS: Omeprazole 20 MG CAPSULE.DR PO ×2 (06:20→15:07)
[2024-08-06] MEDS: Levothyroxine Sodium 175 MCG TABLET PO (06:20)
[2024-08-06 09:41] VITALS: BP 127/58; PULSE 85; RESP 16; TEMP 36.8; O2SAT 99
[2024-08-06] MEDS: LINACLOTIDE 72 MCG 72 EACH PO (09:42)
[2024-08-06] MEDS: Magnesium Oxide 400 MG TABLET PO (09:43)
[2024-08-06] MEDS: Multivitamin TABLET 1 TAB PO (09:43)
[2024-08-06] MEDS: Ezetimibe 10 MG TABLET PO (09:43)
[2024-08-06] MEDS: Cholecalciferol (Vitamin D3) 10 MCG TABLET 20 MCG PO (09:43)
[2024-08-06] MEDS: Propranolol HCL 10 MG TABLET 5 MG PO (09:43)
[2024-08-06] MEDS: Atorvastatin Calcium 10 MG TABLET PO (09:45)
[2024-08-06] MEDS: Escitalopram Oxalate 5 MG TABLET 15 MG PO (09:45)
[2024-08-06] MEDS: clonazePAM 1 MG TABLET PO ×3 (09:46→20:18)
[2024-08-06] MEDS: Sucralfate 1 GM TABLET PO ×2 (09:46→15:07)
[2024-08-06] MEDS: QUEtiapine Fumarate 25 MG TABLET 12.5 MG PO ×3 (09:46→20:19)
[2024-08-06] MEDS: Tamsulosin HCL 0.4 MG CAPSULE PO (09:47)
[2024-08-06] MEDS: busPIRone HCl 5 MG TABLET 15 MG PO ×3 (09:47→20:17)
--- NOTE | 2024-08-06 15:59 | P.PNPSI_ITS ---
Subjective Subjective Date of Service: 08/06/24 Reason For Visit: Major depression, generalized anxiety, OCD Subjective Notes: Conditional Voluntary Interim History: The nursing staff reported the patient had been pleasant, cooperative very anxious he had good appetite. We started yesterday a low dose of Seroquel that has helped. According to the occupational therapist he was able to participate more after Seroquel was started in the afternoon. He had a Hobgood test and he scored 24/30 and an Kian of 4.8. On interview the patient reports anxiety, we discussed his Hobgood results and agreed to start Aricept. We discussed options for his nausea and he agreed to try Zofran instead of Compazine.. Mental Status Exam Mental Status Exam Patient Appearance: Appropriate Patient Orientation: Person and Situation Level of Consciousness: Awake and Appropriate Patient Behavior: Guarded and Passive Mood Description: Withdrawn Affect Description: Constricted Patient Cognition Impaired: Yes Ability to Follow Directions: Good Speech Pattern: Clear Hallucinations: None Delusions: Ideas of Reference Thought Process: Distracted and Slowed Thinking Thought Content: positive for [place] and positive for Poverty of Content Judgement: Fair Diagnostics Vital Signs (24Hr): Vital Signs - 24 hr 08/05/24 20:00 08/06/24 09:41 Temperature 97.7 F 98.2 F Pulse Rate 62 85 Respiratory Rate 16 16 Blood Pressure 101/58 L 127/58 L Pulse Oximetry 98 99 Oxygen Delivery Method Room Air Room Air BMI result Body Mass Index 23.5 Medications Medications Current Medications Acetaminophen (Acetaminophen 325 Mg Tablet) 650 mg PO Q6H PRN PRN Reason: Headache/Pain, Scale 1-10 Al Hydroxide/Mg Hydroxide (Magnesium Hydrox/Alum Hydrox 30 Ml Oral.Susp) 30 ml PO Q6H PRN PRN Reason: Heartburn/Nausea Atorvastatin Calcium (Atorvastatin Calcium 10 Mg Tablet) 10 mg PO DAILY [facility] Last Admin: 08/06/24 09:45 Dose: 10 mg Buspirone HCl (Buspirone Hcl 5 Mg Tablet) 15 mg PO TID [facility] Last Admin: 08/06/24 14:40 Dose: 15 mg Clonazepam (Clonazepam 1 Mg Tablet) 1 mg PO TID [facility] Last Admin: 08/06/24 14:42 Dose: 1 mg Ezetimibe (Ezetimibe 10 Mg Tablet) 10 mg PO DAILY [facility] Last Admin: 08/06/24 09:43 Dose: 10 mg Escitalopram Oxalate (Escitalopram Oxalate 5 Mg Tablet) 15 mg PO DAILY [facility] Last Admin: 08/06/24 09:45 Dose: 15 mg Famotidine (Famotidine 20 Mg Tablet) 40 mg PO BEDTIME [facility] Last Admin: 08/05/24 20:26 Dose: 40 mg Hydroxyzine HCl (Hydroxyzine Hcl 25 Mg Tablet) 25 mg PO Q6H PRN PRN Reason: mild anxiety Levothyroxine Sodium (Levothyroxine Sodium 175 Mcg Tablet) 175 mcg PO DAILY@0600 [facility] Last Admin: 08/06/24 06:20 Dose: 175 mcg Magnesium Hydroxide (Milk Of Magnesia 30 Ml Oral.Susp) 30 ml PO DAILY PRN PRN Reason: for continued Constipation Magnesium Oxide (Magnesium Oxide 400 Mg Tablet) 400 mg PO DAILY [facility] Last Admin: 08/06/24 09:43 Dose: 400 mg Multivitamins/Vitamin C (Multivitamin Tablet) 1 tab PO DAILY [facility] Last Admin: 08/06/24 09:43 Dose: 1 tab Patient Own Medication ( Linaclotide 72 Mcg) 72 mcg PO DAILY [facility] Last Admin: 08/06/24 09:42 Dose: 72 mcg Omeprazole (Omeprazole 20 Mg Capsule.Dr) 20 mg PO BID@0630,1630 [facility] Last Admin: 08/06/24 15:07 Dose: 20 mg Ondansetron HCl (Ondansetron Odt 8 Mg Tab.Rapdis) 8 mg TRANSLINGU Q6H PRN PRN Reason: Nausea and Vomiting Propranolol HCl (Propranolol Hcl 10 Mg Tablet) 5 mg PO BID [facility]; Protocol Last Admin: 08/06/24 09:43 Dose: 5 mg Quetiapine Fumarate (Quetiapine Fumarate 25 Mg Tablet) 25 mg PO TID PRN PRN Reason: severe anxiety Quetiapine Fumarate (Quetiapine Fumarate 25 Mg Tablet) 12.5 mg PO TID [facility] Last Admin: 08/06/24 14:41 Dose: 12.5 mg Quetiapine Fumarate (Quetiapine Fumarate 25 Mg Tablet) 25 mg PO BEDTIME [facility] Last Admin: 08/05/24 20:27 Dose: 25 mg Senna (Sennosides 8.6 Mg Tablet) 8.6 mg PO DAILY PRN PRN Reason: give first for Constipation Last Admin: 08/05/24 12:50 Dose: 8.6 mg Sucralfate (Sucralfate 1 Gm Tablet) 1 gm PO BIDAC [facility] Last Admin: 08/06/24 15:07 Dose: 1 gm Tamsulosin HCl (Tamsulosin Hcl 0.4 Mg Capsule) 0.4 mg PO DAILY [facility] Last Admin: 08/06/24 09:47 Dose: 0.4 mg Trazodone HCl (Trazodone Hcl 50 Mg Tablet) 50 mg PO BEDTIME MRX1 PRN PRN Reason: Insomnia Vitamin D (Cholecalciferol (Vitamin D3) 10 Mcg Tablet) 20 mcg PO DAILY [facility] Last Admin: 08/06/24 09:43 Dose: 20 mcg Allergies Allergies Allergy/AdvReac Type Severity Reaction Status Date / Time fluvoxamine [From LUVOX] AdvReac Unknown HEPATITIS Verified 03/24/24 12:47 NSAIDS (Non-Steroidal AdvReac Unknown GI ISSUES Verified 03/24/24 12:47 Anti-Inflamma [NSAIDS (NON-STEROIDAL ANTI-INFLAMMA] Assessment & Plan Assessment & Plan (1) History of OCD (obsessive compulsive disorder): Status: Acute Code(s): Z86.59 - Personal history of other mental and behavioral disorders (2) BRITTNY (generalized anxiety disorder): Status: Acute Code(s): F41.1 - Generalized anxiety disorder (3) MDD (major depressive disorder), recurrent episode, severe: Status: Acute Code(s): F33.2 - Major depressive disorder, recurrent severe without psychotic features Plan The patient is a 74-year-old male with a past history of OCD, major depressive disorder and panic disorder was brought into the facility after he d isclosed passive suicidal thought and a gesture of cutting himself with a butter knife. He was assessed by crisis and transferring to this facility for psychiatric stabilization. Plan 1. 15 minute checks since the patient is able to contract for safety. 2. Gather more collateral information. 3. Keep Lexapro as prescribed. 4. Keep Klonopin as t.i.d.. 4. At more PRNs Seroquel p.r.n. anxiety. 6. Reassessment with results after blood work. 7. Start Seroquel 12.5 mg po tid to target anxiety. 8. Seroquel 25 mg p.o. q.h.s. at night. 9. Start Aricept 5 mg p.o. q.h.s. to target mild cognitive impairment. Reason for continued inpatient stay Substantial Risk for: inability to function, rapid decompensation and med/psych decompensation Time Spent With Patient Time: Total time managing care of this patient today __20__ minutes.
[2024-08-06] MEDS: Ondansetron ODT 8 MG TAB.RAPDIS TRANSLINGU (17:23)
[2024-08-06] MEDS: QUEtiapine Fumarate 25 MG TABLET PO ×2 (17:30→22:25)
[2024-08-06 20:00] VITALS: BP 122/61; PULSE 62; RESP 16; TEMP 35.9; O2SAT 99
[2024-08-06] MEDS: Donepezil HCl 5 MG TABLET PO (20:18)
[2024-08-06] MEDS: Famotidine 20 MG TABLET 40 MG PO (20:19)
[2024-08-06 20:35] VITALS: PULSE 63; RESP 29; O2SAT 100
[2024-08-07] MEDS: Omeprazole 20 MG CAPSULE.DR PO ×2 (06:15→16:52)
[2024-08-07] MEDS: Levothyroxine Sodium 175 MCG TABLET PO (06:15)
[2024-08-07 08:00] VITALS: BP 121/70; PULSE 59; RESP 16; TEMP 36.9; O2SAT 99
[2024-08-07] MEDS: Escitalopram Oxalate 5 MG TABLET 15 MG PO (09:55)
[2024-08-07] MEDS: Cholecalciferol (Vitamin D3) 10 MCG TABLET 20 MCG PO (09:55)
[2024-08-07] MEDS: Multivitamin TABLET 1 TAB PO (09:55)
[2024-08-07] MEDS: Tamsulosin HCL 0.4 MG CAPSULE PO (09:55)
[2024-08-07] MEDS: busPIRone HCl 5 MG TABLET 15 MG PO ×3 (09:55→20:04)
[2024-08-07] MEDS: Sucralfate 1 GM TABLET PO ×2 (09:55→16:52)
[2024-08-07] MEDS: Ezetimibe 10 MG TABLET PO (09:56)
[2024-08-07] MEDS: QUEtiapine Fumarate 25 MG TABLET 12.5 MG PO ×3 (09:56→20:05)
[2024-08-07] MEDS: Atorvastatin Calcium 10 MG TABLET PO (09:56)
[2024-08-07] MEDS: clonazePAM 1 MG TABLET PO ×3 (09:56→20:05)
[2024-08-07] MEDS: Magnesium Oxide 400 MG TABLET PO (09:57)
--- NOTE | 2024-08-07 14:51 | HO.PSYCHPN ---
Subjective Subjective Date of Service: 08/07/24 Reason For Visit: Major depression, generalized anxiety, OCD Subjective Notes: Conditional Voluntary Interim History: The nursing staff reported the patient had been anxious, having somatic complaints. On interview the patient reports that he is not suicidal and he is willing to be discharged tomorrow. We are working on discharge planning for tomorrow. Mental Status Exam Mental Status Exam Patient Appearance: Appropriate Patient Orientation: Person and Situation Level of Consciousness: Awake and Appropriate Patient Behavior: Guarded and Passive Mood Description: Withdrawn Affect Description: Constricted Patient Cognition Impaired: Yes Ability to Follow Directions: Good Speech Pattern: Clear Hallucinations: None Delusions: Not Present Thought Process: Goal Oriented Thought Content: positive for [place] and positive for Circumstantial Judgement: Fair Diagnostics Vital Signs (24Hr): Vital Signs - 24 hr 08/06/24 20:00 08/06/24 20:35 08/07/24 08:00 Temperature 96.7 F L 98.4 F Pulse Rate 62 59 Respiratory Rate 16 29 H 16 Blood Pressure 122/61 121/70 Pulse Oximetry 99 99 Oxygen Delivery Method Room Air Room Air BMI result Body Mass Index 23.5 Medications Medications Current Medications Acetaminophen (Acetaminophen 325 Mg Tablet) 650 mg PO Q6H PRN PRN Reason: Headache/Pain, Scale 1-10 Al Hydroxide/Mg Hydroxide (Magnesium Hydrox/Alum Hydrox 30 Ml Oral.Susp) 30 ml PO Q6H PRN PRN Reason: Heartburn/Nausea Atorvastatin Calcium (Atorvastatin Calcium 10 Mg Tablet) 10 mg PO DAILY [facility] Last Admin: 08/07/24 09:56 Dose: 10 mg Buspirone HCl (Buspirone Hcl 5 Mg Tablet) 15 mg PO TID [facility] Last Admin: 08/07/24 09:55 Dose: 15 mg Clonazepam (Clonazepam 1 Mg Tablet) 1 mg PO TID [facility] Last Admin: 08/07/24 09:56 Dose: 1 mg Donepezil HCl (Donepezil Hcl 5 Mg Tablet) 5 mg PO BEDTIME [facility] Last Admin: 08/06/24 20:18 Dose: 5 mg Ezetimibe (Ezetimibe 10 Mg Tablet) 10 mg PO DAILY [facility] Last Admin: 08/07/24 09:56 Dose: 10 mg Escitalopram Oxalate (Escitalopram Oxalate 5 Mg Tablet) 15 mg PO DAILY [facility] Last Admin: 08/07/24 09:55 Dose: 15 mg Famotidine (Famotidine 20 Mg Tablet) 40 mg PO BEDTIME [facility] Last Admin: 08/06/24 20:19 Dose: 40 mg Hydroxyzine HCl (Hydroxyzine Hcl 25 Mg Tablet) 25 mg PO Q6H PRN PRN Reason: mild anxiety Levothyroxine Sodium (Levothyroxine Sodium 175 Mcg Tablet) 175 mcg PO DAILY@0600 [facility] Last Admin: 08/07/24 06:15 Dose: 175 mcg Magnesium Hydroxide (Milk Of Magnesia 30 Ml Oral.Susp) 30 ml PO DAILY PRN PRN Reason: for continued Constipation Magnesium Oxide (Magnesium Oxide 400 Mg Tablet) 400 mg PO DAILY [facility] Last Admin: 08/07/24 09:57 Dose: 400 mg Multivitamins/Vitamin C (Multivitamin Tablet) 1 tab PO DAILY [facility] Last Admin: 08/07/24 09:55 Dose: 1 tab Patient Own Medication ( Linaclotide 72 Mcg) 72 mcg PO DAILY [facility] Last Admin: 08/07/24 10:06 Dose: Not Given Omeprazole (Omeprazole 20 Mg Capsule.Dr) 20 mg PO BID@0630,1630 [facility] Last Admin: 08/07/24 06:15 Dose: 20 mg Ondansetron HCl (Ondansetron Odt 8 Mg Tab.Rapdis) 8 mg TRANSLINGU Q6H PRN PRN Reason: Nausea and Vomiting Last Admin: 08/06/24 17:23 Dose: 8 mg Propranolol HCl (Propranolol Hcl 10 Mg Tablet) 5 mg PO BID [facility]; Protocol Last Admin: 08/06/24 22:24 Dose: Not Given Quetiapine Fumarate (Quetiapine Fumarate 25 Mg Tablet) 25 mg PO TID PRN PRN Reason: severe anxiety Last Admin: 08/06/24 17:30 Dose: 25 mg Quetiapine Fumarate (Quetiapine Fumarate 25 Mg Tablet) 12.5 mg PO TID [facility] Last Admin: 08/07/24 09:56 Dose: 12.5 mg Quetiapine Fumarate (Quetiapine Fumarate 25 Mg Tablet) 25 mg PO BEDTIME [facility] Last Admin: 08/06/24 22:25 Dose: 25 mg Senna (Sennosides 8.6 Mg Tablet) 8.6 mg PO DAILY PRN PRN Reason: give first for Constipation Last Admin: 08/05/24 12:50 Dose: 8.6 mg Sucralfate (Sucralfate 1 Gm Tablet) 1 gm PO BIDAC [facility] Last Admin: 08/07/24 09:55 Dose: 1 gm Tamsulosin HCl (Tamsulosin Hcl 0.4 Mg Capsule) 0.4 mg PO DAILY [facility] Last Admin: 08/07/24 09:55 Dose: 0.4 mg Trazodone HCl (Trazodone Hcl 50 Mg Tablet) 50 mg PO BEDTIME MRX1 PRN PRN Reason: Insomnia Vitamin D (Cholecalciferol (Vitamin D3) 10 Mcg Tablet) 20 mcg PO DAILY [facility] Last Admin: 08/07/24 09:55 Dose: 20 mcg Allergies Allergies Allergy/AdvReac Type Severity Reaction Status Date / Time fluvoxamine [From LUVOX] AdvReac Unknown HEPATITIS Verified 03/24/24 12:47 NSAIDS (Non-Steroidal AdvReac Unknown GI ISSUES Verified 03/24/24 12:47 Anti-Inflamma [NSAIDS (NON-STEROIDAL ANTI-INFLAMMA] Assessment & Plan Assessment & Plan (1) History of OCD (obsessive compulsive disorder): Status: Acute Code(s): Z86.59 - Personal history of other mental and behavioral disorders (2) BRITTNY (generalized anxiety disorder): Status: Acute Code(s): F41.1 - Generalized anxiety disorder (3) MDD (major depressive disorder), recurrent episode, severe: Status: Acute Code(s): F33.2 - Major depressive disorder, recurrent severe without psychotic features Plan The patient is a 74-year-old male with a past history of OCD, major depressive disorder and panic disorder was brought into the facility after he disclosed passive suicidal thought and a gesture of cutting himself with a butter knife. He was assessed by crisis and transferring to this facility for psychiatric stabilization. Plan 1. 15 minute checks since the patient is able to contract for safety. 2. Gather more collateral information. 3. Keep Lexapro as prescribed. 4. Keep Klonopin as t.i.d.. 4. At more PRNs Seroquel p.r.n. anxiety. 6. Reassessment with results after blood work. 7. Start Seroquel 12.5 mg po tid to target anxiety. 8. Seroquel 25 mg p.o. q.h.s. at night. 9. Start Aricept 5 mg p.o. q.h.s. to target mild cognitive impairment. 10. Discharge tomorrow Reason for continued inpatient stay Substantial Risk for: inability to function, rapid decompensation and med/psych decompensation Time Spent With Patient Time: Total time managing care of this patient today __20__ minutes.
--- NOTE | 2024-08-07 14:52 | P.DS_ITS ---
DS: Providers Provider Date of Service: 08/07/24 Date of admission: 08/03/24 11:38 Date of discharge: 08/08/24 Primary care physician: Unknown Physician Consults: 08/03/24 17:35 Consult to Hospitalist Routine Comment: Consulting Provider: [facility] [facility] Reason For Exam: transfer pt DS: Diagnosis Discharge Diagnosis (1) History of OCD (obsessive compulsive disorder): Status: Acute (2) BRITTNY (generalized anxiety disorder): Status: Acute (3) MDD (major depressive disorder), recurrent episode, severe: Status: Acute DS: Medications Discharge Medications Home Medications: Home Medications ?Medication ?Instructions ?Recorded ?Confirmed ezetimibe 10 mg tablet 1 tab PO DAILY 03/29/20 08/03/24 propranolol 10 mg tablet 1 tab PO BID 03/29/20 08/03/24 clonazepam 1 mg tablet (Klonopin) 1 mg PO TID 06/23/21 08/03/24 tamsulosin 0.4 mg capsule 0.4 mg PO DAILY 06/23/21 08/03/24 buspirone 15 mg tablet 15 mg PO TID 03/19/24 08/03/24 famotidine 40 mg tablet 40 mg PO BEDTIME 03/19/24 08/03/24 quetiapine 25 mg tablet 25 mg PO BID PRN Severe Anxiety 03/19/24 08/03/24 prochlorperazine maleate 5 mg 5 mg PO BID PRN Nausea 08/03/24 08/03/24 tablet (Compazine) Previous Rx's ?Medication ?Instructions ?Recorded escitalopram oxalate 10 mg tablet 15 mg (1.5 x 10 mg) PO DAILY as 03/26/24 directed 14 days #21 tabs ondansetron HCl 4 mg tablet 4 mg PO BID PRN nausea #8 tabs 04/02/24 Centrum Silver Men 1 tab PO DAILY 30 days #30 tabs 08/07/24 Linaclotide 72 mcg PO DAILY 30 days #30 tabs 08/07/24 buspirone 5 mg tablet 15 mg (3 x 5 mg) PO TID 30 days 08/07/24 #270 tabs cholecalciferol (vitamin D3) 1 tab PO DAILY 30 days #30 caps 08/07/24 clonazepam 1 mg tablet 1 mg PO TID 30 days #90 tabs 02/21/25 donepezil 5 mg tablet 5 mg PO BEDTIME 30 days #30 tabs 08/07/24 escitalopram oxalate 5 mg tablet 15 mg (3 x 5 mg) PO DAILY 30 days 08/07/24 #90 tabs ezetimibe 10 mg tablet 10 mg PO DAILY 30 days #30 tabs 08/07/24 famotidine 20 mg tablet 40 mg (2 x 20 mg) PO BEDTIME 30 08/07/24 days #60 tabs levothyroxine 175 mcg tablet 175 mcg PO DAILY 30 days #30 tabs 08/07/24 linaclotide 72 mcg capsule 72 mcg PO DAILY #30 caps 08/07/24 (Linzess) magnesium oxide 400 mg (241.3 mg 1 tab PO DAILY 30 days #30 tabs 08/07/24 magnesium) tablet ondansetron 8 mg disintegrating 8 mg translingual Q6H PRN Nausea 08/07/24 tablet And Vomiting 30 days #90 tabs pantoprazole 40 mg tablet,delayed 40 mg PO BID 30 days #60 tabs 08/07/24 release (Protonix) propranolol 10 mg tablet 5 mg PO BID 30 days #30 tabs 08/07/24 quetiapine 25 mg tablet 12.5 mg (1/2 x 25 mg) PO TID 30 08/07/24 days #45 tabs quetiapine 25 mg tablet 25 mg PO BEDTIME 30 days #30 tabs 08/07/24 quetiapine 25 mg tablet 25 mg PO TID PRN severe anxiety 30 08/07/24 days #60 tabs sennosides 8.6 mg tablet (Senna 8.6 mg PO DAILY PRN give first for 08/07/24 Lax) Constipation 30 days #30 tabs simvastatin 20 mg tablet 1 tab PO BEDTIME 30 days #30 tabs 08/07/24 sucralfate 1 gram tablet 1 g PO BID 30 days #60 tabs 08/07/24 tamsulosin 0.4 mg capsule 0.4 mg PO DAILY 30 days #30 caps 08/07/24 vitamin B complex 1 tab PO DAILY 30 days #30 tabs 08/07/24 Mental Status Exam Mental Status Exam Patient Appearance: Appropriate Patient Orientation: Person and Situation Level of Consciousness: Awake and Appropriate Patient Behavior: Appropriate and Cooperative Mood Description: Calm Affect Description: Constricted and Anxious Patient Cognition Impaired: No Ability to Follow Directions: Good Speech Pattern: Clear Hallucinations: None Delusions: Not Present Thought Process: Distracted and Slowed Thinking Thought Content: positive for [place] and positive for Circumstantial Judgement: Fair Data Data Completed and Pending Completed studies during hospitalization [Text1]: 08/04/24 08/04/24 07:15 07:16 Estimat Average Glucose 103 Hemoglobin A1c % 5.2 Magnesium 2.1 Triglycerides 72 Cholesterol 143 LDL Cholesterol, Calc 71 HDL Cholesterol 58 Vitamin B12 757 Folate 14.3 TSH 0.77 Free T4 1.14 DS: Summary Hospital Course Hospital Course: The patient is a 74-year-old male with a past history of obsessive- compulsive disorder, major depressive disorder and other comorbidities who was admitted into the hospital by the emergency room since he disclosed passive suicidal thoughts. He was assessed by crisis and transferring to this facility for psychiatric stabilization. Please see the HPI of the admission note for further details. On admission we discussed his list of medications and we realized that he is on a very high dose of Lexapro. He was tried other antidepressants in the past with limited efficacy. His main complaint was anxiety and his constant nausea that he has been assessed before workout electronic equipment installer but apparently there was a suspicion that it could be related to his anxiety disorder. He adamantly denied suicidal ideation and he was able to contract for safety in the facility. We did cognitive assessments and he scored 24/30 on the [place] Ell test and over 4 on the Kian test. We discussed options and he agreed to try Aricept for prevention of cognitive decline. We start a very low dose of Seroquel 12.5 mg p.o. t.i.d. and keep 25 mg at night to target anxiety and restlessness. The patient was able to tolerate the medication and he was able to contract for safety. He wanted to be discharged as early so he can attend to a 2nd opinion with a electronic equipment installer. Since there were no safety concerns discharge planning was discussed. Status at Discharge Cognitive/behavioral status at discharge: At baseline Functional status at discharge: independent ambulation Overall status at discharge: patient is back to baseline Time Spent with Patient Time attestation: Total time managing care of this patient today __30__ minutes. Time spent: Less than 30 minutes Discharge Plan Discharge Anticipated Discharge Date/Time: 08/08/24 11:00 Patient Disposition: Home, Self-Care Discharge Diagnosis: Major depressive disorder OCD BRITTNY Referrals: Richler, Lalita (Psychiatrist) [Other] - 08/27/24 11:30 am (You will see on August 27 at 11:30 AM. Please call the number listed if you need to cancel or reschedule) Judge Richard ([facility]) [Other] - 3-5 Days (Messages were left to make an aftercare appointment for Blake. They have yet to call back but Any's number was left in both messages if they were unable to get in touch with Social Work. Please reach out to them if you have not heard back within 3-5 days.) Carissa Cameron NP [Nurse Practitioner] - 08/18/24 2:30 pm (You will see your PCP on August 18 at 2:30pm. If you need to cancel or reschedule the appointment please call the number listed.) Discharge Medications: New quetiapine 25 mg Tablet 25 mg PO BEDTIME 30 Days Qty: 30 0RF quetiapine 25 mg Tablet 25 mg PO TID PRN (Reason: severe anxiety) 30 Days Qty: 60 0RF quetiapine 25 mg Tablet 12.5 mg PO TID 30 Days Qty: 45 0RF buspirone 5 mg Tablet 15 mg PO TID 30 Days Qty: 270 0RF donepezil 5 mg Tablet 5 mg PO BEDTIME 30 Days Qty: 30 0RF clonazepam 1 mg Tablet 1 mg PO TID 30 Days Qty: 90 0RF propranolol 10 mg Tablet 5 mg PO BID 30 Days Qty: 30 0RF Protocol: Hold for SBP/HR < HOLD for SBP < : 90 HOLD for HR < : 60 famotidine 20 mg Tablet 40 mg PO BEDTIME 30 Days Qty: 60 0RF tamsulosin 0.4 mg Capsule 0.4 mg PO DAILY 30 Days Qty: 30 0RF ezetimibe 10 mg Tablet 10 mg PO DAILY 30 Days Qty: 30 0RF escitalopram oxalate 5 mg Tablet 15 mg PO DAILY 30 Days Qty: 90 0RF ondansetron 8 mg Tablet,Disintegrating 8 mg translingual Q6H PRN (Reason: Nausea And Vomiting) 30 Days Qty: 90 0RF sennosides [Senna Lax] 8.6 mg Tablet 8.6 mg PO DAILY PRN (Reason: give first for Constipation) 30 Days Qty: 30 0RF Linaclotide 72 mcg PO DAILY 30 Days Qty: 30 0RF Continued levothyroxine 175 mcg Tablet 175 mcg PO DAILY 30 Days Qty: 30 0RF Rx Instructions: Take at 0600 am. sucralfate 1 gram Tablet 1 g PO BID 30 Days Qty: 60 0RF Rx Instructions: Take at 11:00 pm at bedtime. magnesium oxide 400 mg (241.3 mg magnesium) tablet 1 tab PO DAILY 30 Days Qty: 30 0RF pantoprazole [Protonix] 40 mg Tablet,Delayed Release (Dr/Ec) 40 mg PO BID 30 Days Qty: 60 0RF simvastatin 20 mg tablet 1 tab PO BEDTIME 30 Days Qty: 30 0RF vitamin B complex Tablet 1 tab PO DAILY 30 Days Qty: 30 0RF Rx Instructions: Patient stated he takes twice a day Linzess 72 mcg Capsule 72 mcg PO DAILY Qty: 30 0RF Centrum Silver Men tablet 1 tab PO DAILY 30 Days Qty: 30 0RF cholecalciferol (vitamin D3) 2,000 units capsule 1 tab PO DAILY 30 Days Qty: 30 0RF Rx Instructions: 1 tab PO DAILY Discontinued propranolol 10 mg tablet 1 tab PO BID ezetimibe 10 mg tablet 1 tab PO DAILY clonazepam [Klonopin] 1 mg Tablet 1 mg PO TID tamsulosin 0.4 mg Capsule 0.4 mg PO DAILY famotidine 40 mg Tablet 40 mg PO BEDTIME buspirone 15 mg Tablet 15 mg PO TID quetiapine 25 mg Tablet 25 mg PO BID PRN (Reason: Severe Anxiety) escitalopram oxalate 10 mg tablet 15 mg PO DAILY 14 Days Qty: 21 0RF ondansetron HCl 4 mg tablet 4 mg PO BID PRN (Reason: nausea) Qty: 8 0RF prochlorperazine maleate [Compazine] 5 mg Tablet 5 mg PO BID PRN (Reason: Nausea) Discharge Orders: Discharge Order (Routine); Ordered 08/08/24 Ordered By: Roldan Cárdenas Diet: Advance to usual diet Activity on Discharge: As tolerated Stand Alone Forms: Patient Portal Discharge page Print Language: Greenlandic Care Plan Goals: Care plan goals achieved in this admission Health Concerns: Continue treatment with primary care physician and other outpatient specialists. Plan of Treatment: Continue treatment at an outpatient psychiatric Assessment: The patient is an elderly male with a past history of major depressive disorder generalized anxiety disorder and OCD who was admitted for passive suicidal thoughts, his main complaint was increased anxiety that it was not resolved with increase of SSRIs so we add a low dose of Seroquel as augmentation for and C0 lytics and depression treatment. At this moment safe to be discharged in the community and continue with outpatient providers.
[2024-08-07] MEDS: Ondansetron ODT 8 MG TAB.RAPDIS TRANSLINGU ×2 (16:19→22:46)
[2024-08-07 20:00] VITALS: BP 113/59; PULSE 75; RESP 19; TEMP 37.1; O2SAT 98
[2024-08-07] MEDS: Famotidine 20 MG TABLET 40 MG PO (20:04)
[2024-08-07] MEDS: Donepezil HCl 5 MG TABLET PO (20:05)
[2024-08-07] MEDS: QUEtiapine Fumarate 25 MG TABLET PO (20:05)
[2024-08-08] MEDS: Levothyroxine Sodium 175 MCG TABLET PO (06:04)
[2024-08-08] MEDS: Omeprazole 20 MG CAPSULE.DR PO (06:30)
[2024-08-08] MEDS: clonazePAM 1 MG TABLET PO (09:08)
[2024-08-08] MEDS: Tamsulosin HCL 0.4 MG CAPSULE PO (09:08)
[2024-08-08] MEDS: Cholecalciferol (Vitamin D3) 10 MCG TABLET 20 MCG PO (09:08)
[2024-08-08] MEDS: Atorvastatin Calcium 10 MG TABLET PO (09:08)
[2024-08-08] MEDS: Multivitamin TABLET 1 TAB PO (09:08)
[2024-08-08] MEDS: Sucralfate 1 GM TABLET PO (09:08)
[2024-08-08] MEDS: Ezetimibe 10 MG TABLET PO (09:09)
[2024-08-08] MEDS: Ondansetron ODT 8 MG TAB.RAPDIS TRANSLINGU (09:09)
[2024-08-08] MEDS: QUEtiapine Fumarate 25 MG TABLET 12.5 MG PO (09:09)
[2024-08-08] MEDS: Magnesium Oxide 400 MG TABLET PO (09:09)
[2024-08-08] MEDS: busPIRone HCl 5 MG TABLET 15 MG PO (09:11)
[2024-08-08 09:12] VITALS: BP 122/64; PULSE 78; RESP 20; TEMP 36.8; O2SAT 100
[2024-08-08] MEDS: Propranolol HCL 10 MG TABLET 5 MG PO (09:13)
[2024-08-08] MEDS: hydrOXYzine HCL 25 MG TABLET PO (09:14)
[2024-08-08] MEDS: Escitalopram Oxalate 5 MG TABLET 15 MG PO (10:24)
== END 2024-08-08 11:21 | disposition home or self-care (01) | DRG 885 ==
PROVIDERS: Admitting Provider Clinical Nurse Specialist Psychiatric/Mental Health, Adult; Visit Provider Clinical Nurse Specialist Psychiatric/Mental Health, Adult
DX: F33.2 Major depressive disorder, recurrent severe without psychotic features (principal); F41.1 Generalized anxiety disorder; F42.9 Obsessive-compulsive disorder, unspecified; E03.9 Hypothyroidism, unspecified; G47.33 Obstructive sleep apnea (adult) (pediatric); K59.09 Other constipation; Z79.890 Hormone replacement therapy; Z79.899 Other long term (current) drug therapy
CPT/HCPCS: 36415; 80061; 82607; 82746; 83036; 83735; 84439; 84443; 94660

== ENCOUNTER → 2024-08-03 11:38 | Outpatient (BNV) | payer MEDICARE, SELFPAY | PROVIDERS: Admitting Provider Clinical Nurse Specialist Psychiatric/Mental Health, Adult; Visit Provider Physician Assistant | DX: Z00.8 Encounter for other general examination (principal) | CPT/HCPCS: 99223 ==

== ENCOUNTER → 2024-08-03 11:38 | Outpatient (BNV) | payer MEDICARE, SELFPAY | PROVIDERS: Admitting Provider Clinical Nurse Specialist Psychiatric/Mental Health, Adult; Visit Provider Psychiatry & Neurology Psychiatry | DX: F33.2 Major depressive disorder, recurrent severe without psychotic features (principal); F41.1 Generalized anxiety disorder; Z86.59 Personal history of other mental and behavioral disorders | CPT/HCPCS: 90792; 99231; 99232; 99238 ==